=== PATIENT | female | born 1980 | race Caucasian/White ===

== ENCOUNTER 2023-08-30 18:01 | Emergency (ER) | payer MEDICAID, SELFPAY ==
[2023-08-30 18:02] VITALS: BP 131/81; PULSE 86; RESP 15; TEMP 36; O2SAT 98; BMI 28.5
--- NOTE | 2023-08-30 18:17 | EDS_ITS ---
HPI History of Present Illness Chief Complaint: Abd Pain Informant: patient Narrative Narrative: 7-week gestation by dates presents concerns of vomiting over 3 days. No hematemesis. She states her vomit all night none today she will tolerate fluids. No diarrhea. Mild cramping of the abdomen she states she had vaginal discharge that was gel-like. There is no bleeding or clots. She is followed by OB in [place]. She has appointment next week. Denies urinary symptoms. Denies alcohol, tobacco, or illicit drug use. Denies any allergies. [facility] Medical History Irregular heart rate Home Medications ?Medication ?Instructions ?Recorded ?Last Taken ?Type cephalexin 500 mg capsule 500 mg PO Q12 #14 CAPSULES 08/30/23 Unknown Rx promethazine 25 mg tablet 25 mg PO Q6H PRN PRN Nausea #10 08/30/23 Unknown Rx TABLETS Allergy/AdvReac Type Severity Reaction Status Date / Time No Known Allergies Allergy Verified 08/30/23 18:04 Surgical History no surgical history Social History Smoking Status: Never smoker ROS ROS ED Constitutional Constitutional ED: Denies chills, fever(s) or sweats Eyes Eyes: Denies change in vision ENT ENT ED: Denies dysphagia or sore throat Cardiovascular Cardiovascular: Denies chest pain, leg edema, palpitations or racing heartbeat Respiratory/Chest Respiratory/Chest: Denies cough, dyspnea or dyspnea on exertion Gastrointestinal Gastrointestinal: Reports nausea and vomiting; Denies abdominal pain or diarrhea Genitourinary Genitourinary ED: Reports other Details: Vaginal discharge x 1, no bleeding ; Denies dysuria, hematuria or urinary frequency Musculoskeletal Musculoskeletal: Denies back pain, extremity pain or neck pain Integumentary Denies rash or wounds Neurologic Neurologic: Denies headache(s), paresthesias or weakness EXAM Physical Exam Const Vital Signs: 08/30/23 18:02 Temperature 96.8 F L Temperature Source Temporal Pulse Rate 86 Respiratory Rate 15 Blood Pressure 131/81 H Blood Pressure Mean 97 Pulse Ox 98 Positive well nourished and well developed General Appearance ED: well developed and NAD HEENT Reports moist mucous membranes normocephalic and atraumatic Eyes EOMs intact bilaterally and conjunctivae normal General Eye ED: Yes normal appearance of both eyes Neck no lymphadenopathy and supple General: Negative for tenderness Chest Wall Chest: Negative for tenderness Resp normal respiratory effort and normal air movement Effort and Inspection: symmetric chest movement; Negative for respiratory distress Cardio regular rate, regular rhythm and no murmurs Peripheral Pulses: pulses 2+ throughout GI normal to inspection, nondistended, normoactive bowel sounds and non-tender Palpation: Negative for guarding or rebound tenderness present Narrative: No tenderness in the pelvic region Back/Spine no CVA tenderness and no thoracic nor lumbar tenderness Extremity normal to inspection General Extremety ED: Negative for edema or tenderness General Extremity: Negative for edema Neuro oriented x3 and no sensory deficits noted Sensorium / Orientation: awake and alert Skin no rashes or lesions noted and no wounds MDM MDM MDM Narrative Medical decision making narrative: Interventions / MDM: Differential diagnosis: , UTI, dehydration Diagnosis considered but do not suspect: no clinical ectopic My EKG interpretation: N/A Imaging independently reviewed and interpreted by myself: N/A External documents reviewed: N/A Test considered but not ordered:N/A ED course: Patient nontoxic nontender abdomen. Reported vomiting for 3 days. She tolerant oral fluids today. Reports 7-week gestation. IV established for fluids she declines any nausea medicines in the ED as she wants to drive. Electrolytes are sent. Urine sent. I Do not feel ultrasound emergently required today. Urine confirms urine with ketones 25 leukocytes 2+ bacteria. Urine culture sent. Electrolytes are all normal. She is started on Keflex for with bacteria. Urine culture pending. Discussed with patient continue oral fluids for hydration. Prescription for Phenergan and Keflex sent to her pharmacy. She has a follow-up with her OB on September 18. She will keep this appointment. Return precautions. All questions were answered. Re-evaluation: stable Disposition discussed with patient/family/significant other: Patient Case discussed with consulting clinician: N/A This note was generated with [employer] dictation software. It may contain incorrect words, spelling, and punctuation that were not noted in checking the note before signing. Lab Data Attestation: I reviewed the patient's lab results. Labs: Laboratory Results - last 24 hr 08/30/23 18:35 Sodium 137 Potassium 3.5 Chloride 107 Carbon Dioxide 24.0 Anion Gap 6 BUN 12 Creatinine 0.71 Estim Creat Clear Calc 99.84 Est GFR (MDRD) Af Amer 117 Est GFR (MDRD) Non-Af 97 BUN/Creatinine Ratio 17.0 Glucose 110 H Calcium 9.1 Urine Color Yellow Urine Clarity Sl. Cloudy Urine pH 5.0 Ur Specific [place] 1.030 Urine Protein 15 H Urine Glucose (UA) Normal Urine Ketones 5 H Urine Occult Blood Negative Urine Nitrite Negative Urine Bilirubin 1 H Urine Urobilinogen 1 H Ur Leukocyte Esterase 25 H Urine RBC 0-5 SEEN Urine WBC 0-5 SEEN Ur Squamous Epith Cells 5-10 SEEN Calcium Oxalate Crystal 2+ Urine Bacteria 2+ Urine Mucus 3+ Urine Test Positive H Discharge Plan Triage Chief Complaint: Abd Pain ED Provider: Neville Gordon Dx/Rx/DC Orders Clinical Impression: First trimester , Vomiting, UTI in Instructions: Urinary Tract Infections in Women, 1st Trimester, ED Vomiting (Adult) Prescriptions: New cephalexin 500 mg capsule 500 mg PO Q12 Qty: 14 0RF promethazine 25 mg tablet 25 mg PO Q6H PRN PRN (Reason: Nausea) Qty: 10 0RF Stand Alone Forms: ED Work / School Excuse Primary Care Provider: Care Physician,No Primary Referrals: Care Physician,No Primary [Primary Care Provider] - Activity Restrictions/Additional Instructions: Urine with signs of infection. Take antibiotic prescribed. Continue oral fluids for hydration. Use nausea medicines as needed. Follow-up with your OB doctor as scheduled. Print Language: Hungarian Disposition Disposition: Home, Self Care
[2023-08-30] MEDS: 0.9% Normal Saline (1000mL) 1,000 ML 1000 ML IV (18:34)
[2023-08-30 18:59] LABS: Color, Urine Yellow (Yellow); Glucose, Dipstick Normal (Normal); Ketone-Dipstick 5 mg/dl (Negative); Leukocyte Esterase-Dipstick 25 /ul (Negative); Nitrite-Dipstick Negative (Negative); Occult Blood-Urine Negative /ul (Negative); Protein-Dipstick 15 mg/dl (Negative); Urine Bilirubin Dipstick 1 mg/dL (Negative); Urine Clarity Sl. Cloudy (Clear); Urine Urobilinogen 1 mg/dl (Normal)
[2023-08-30 19:01] LABS: Internal QC Validated? YES +Cl - CLEAR BKGD; Pregnancy, Urine Positive Negative
[2023-08-30 19:06] LABS: Anion Gap 6 (5-15); BUN 12 mg/dL (7-18); Calcium Oxalate Crystals Ur 2+ /hpf (<or=2+); Calcium,Total 9.1 mg/dL (8.5-10.1); Chloride 107 mmol/L (98-107); Creatinine, Serum 0.71 mg/dL (0.55-1.02); EST Glomerular Filtration Rate 97 mL/min (>60); Est Glom Filt Rate - Afr Amer 117 mL/min (>60); Estimated Creatinine Clearance 99.84 ml/min; Glucose 110 mg/dL (74-106); Potassium 3.5 mmol/L (3.5-5.1); Sodium Level 137 mmol/L (136-145)
[2023-08-30 19:07] LABS: Mucous, Urine 3+ /hpf (<or=2+); Squamous Epithelial Cells - UA 5-10 SEEN /hpf (5-10); White Blood Cells 0-5 SEEN /hpf (0-5)
[2023-08-30 19:08] LABS: Bacteria 2+ /hpf (None Seen); Red Blood Cells-Urine 0-5 SEEN /hpf (0-5)
[2023-08-30] MEDS: Cephalexin 250 MG Capsule 500 MG PO (19:55)
[2023-08-30 19:58] VITALS: BP 133/69; PULSE 81; RESP 16; TEMP 36.7; O2SAT 98
== END 2023-08-30 20:00 | disposition home or self-care (01) ==
PROVIDERS: Emergency Provider Emergency Medicine; Visit Provider Emergency Medicine
DX: O23.41 Unspecified infection of urinary tract in pregnancy, first trimester (principal); O21.9 Vomiting of pregnancy, unspecified; Z3A.01 Less than 8 weeks gestation of pregnancy
CPT/HCPCS: 80048; 81001; 81025; 87086; 87088; 96360; 99282; J7030; A4216

== ENCOUNTER 2023-09-17 20:01 | Emergency (ER) | payer MEDICAID, SELFPAY ==
[2023-09-17 20:02] VITALS: BP 121/71; PULSE 91; RESP 18; TEMP 36.4; O2SAT 97; BMI 28.8
--- NOTE | 2023-09-17 20:31 | US_ITS ---
EXAM: US , TRANSVAGINAL CLINICAL INDICATION: Vaginal bleeding with TECHNIQUE: Real-time transvaginal obstetrical ultrasound of the maternal pelvis and a first trimester with image documentation. Transvaginal imaging was used for better evaluation of the fetus and adnexa. COMPARISON: No relevant prior studies available. FINDINGS: GESTATION: See below. PLACENTA/AMNIOTIC FLUID: Cannot be adequately evaluated due to the early gestational age. UTERUS/CERVIX: Uterus measures 11.3 x 5.5 x 7.9 cm. No myometrial mass. OVARIES: The left ovary measures 2.9 x 1.9 x 2.5 cm. There is a 1.6 x 1.2 cm corpus luteum on the left. The right ovary measures 2.7 x 2.1 x 2.1 cm. No mass. FREE FLUID: No free fluid. VASCULATURE: There is an echogenic structure within the endometrium that measures 3.0 x 1.7 x 3.1 cm. There is no vascularity present. This is a thick-walled cystic structure does not have the appearance of a gestational sac or intrauterine gestation. US/Transvaginal w/Preg US IMPRESSION: Nonvascular thick-walled cystic structure within the endometrium of uncertain etiology. This does not have the appearance of an intrauterine gestation. There is no pole or evidence of an intrauterine gestational sac. Electronically Signed: Vamsi Santana MD at 21:56 EDT ,
--- NOTE | 2023-09-17 20:34 | EDS_ITS ---
HPI HPI - Female History of Present Illness Chief Complaint: Vag Bld, Preg Narrative Narrative: 43-year-old female, with 2 prior miscarriages presents with vaginal spotting. She states that she was seen in the emergency department approximately 2 weeks ago and diagnosed with a UTI. She was told that her urine test was also positive at that time. Yesterday, she had vaginal spotting with mild pelvic cramping and pressure. This is the same thing that happened with her previous miscarriages. She states that today, she had brown vaginal spotting as well and is concerned about miscarriage as well. Her blood type is reportedly a negative. She has not followed up regarding her UTI, but she did make an appointment with the [facility] at [place] for her reported positive test. Her last menstrual period was in July, and she calculated that she is approximately 9 weeks gestation. [facility] Medical History Irregular heart rate Home Medications ?Medication ?Instructions ?Recorded ?Last Taken ?Type cephalexin 500 mg capsule 500 mg PO Q12 #14 CAPSULES 08/30/23 Unknown Rx promethazine 25 mg tablet 25 mg PO Q6H PRN PRN Nausea #10 08/30/23 Unknown Rx TABLETS Allergy/AdvReac Type Severity Reaction Status Date / Time No Known Allergies Allergy Verified 08/30/23 18:04 Social History Smoking Status: Former smoker ROS ROS ED ROS Narrative Constitutional: No fever, no chills. HEENT: No sore throat. No neck pain. No loss of vision. No rhinorrhea. Cardiovascular: No chest pain. No palpitations. No pedal edema. Respiratory: No cough, no shortness of breath. Abdominal: No abdominal pain. No nausea. No vomiting. Genitourinary: No dysuria. No hematuria. Positive vaginal spotting. Pelvic cramping and pressure. Musculoskeletal: No myalgias. No arthralgias. Neurologic: No headaches. No dizziness. No lightheadedness. Skin: No rash. No change in color. Psychiatric: No depression. No anxiety. EXAM Physical Exam Narrative Exam Narrative: Afebrile. Vital signs noted. HEENT: Normocephalic. Atraumatic. PERRL, EOMI. Neck soft and supple. No point tenderness or step off. Cardiovascular: Regular rate and rhythm. No murmurs, rubs, or gallops appreciated. Respiratory: No tachypnea. Lungs clear to auscultation bilaterally. Gastrointestinal: Abdomen soft, nontender, with normoactive bowel sounds. No rebound or guarding. Genitourinary: Chaperoned pelvic examination reveals no evidence of vaginal bleeding or hemorrhage. Os is closed on bimanual examination. Neurological: Awake. Alert. Nonfocal, nonlateralizing. Skin: No rash. Normal color. No pallor. Musculoskeletal: No pedal edema. Full range of motion extremities. Const Vital Signs: 09/17/23 20:02 09/17/23 22:01 09/17/23 22:31 Temperature 97.6 F L 98.1 F 98.1 F Temperature Source Temporal Temporal Pulse Rate 91 80 80 Respiratory Rate 18 15 15 Blood Pressure 121/71 H 111/73 111/73 Blood Pressure Mean 87 85 85 Pulse Ox 97 100 100 Oxygen Delivery Method Room Air Room Air MDM MDM MDM Narrative Medical decision making narrative: I reviewed the patient's prior records. Concern would be for miscarriage of intrauterine versus ectopic with UTI/cystitis. Review of her prior ED note from August 29 showed that she was already 7 weeks gestation and was being followed by OB in [place]. She was placed on cephalexin for her UTI with . Her urine test was positive at that time. I do not feel that she needs a repeat urine , but if she is having vaginal spotting quantitative beta-hCG will be drawn. I reviewed her laboratory work and her WBC count is normal at 8.1, hemoglobin 11.1, platelet count 322. CMP is remarkable for chloride of 110 with normal BUN of 10 and creatinine 0.69, glucose elevated at 114 with normal anion gap of 5, LFTs are grossly unremarkable. Beta hCG is elevated at 26,721. Blood type is a negative. Of significance on the ultrasound, I reviewed the radiology report which shows an endometrial cystic structure, but no evidence of pole or vascularity. I was able to discuss the patient with Dr. Leblanc with obstetrics and gynecology. There is a possibility that this is a molar . It was not felt that she needed RhoGAM at this time because there is no evidence of bleeding on examination. I discussed the ultrasound results and laboratory results with the patient as well. Review of her urinalysis shows no evidence of infection, so I do not feel antibiotics or further warranted. I stressed the importance of follow-up in the next few days. She states that she has an appointment on , 2 days from now. She is to call the office of the [facility] tomorrow and see if she needs to be seen either tomorrow or during her scheduled appointment reportedly on . Return instructions to the emergency department were reviewed. Disposition is discharged home in stable condition. History & Record Review Discussion w/independent historian: Patient Lab Data Attestation: I reviewed the patient's lab results. Labs: Laboratory Results - last 24 hr 09/17/23 20:50 WBC 8.1 RBC 3.94 L Hgb 11.1 L Hct 33.7 L MCV 85.5 MCH 28.2 MCHC 32.9 RDW Std Deviation 40.5 RDW Coeff of Jen 12.9 Plt Count 322 MPV 9.1 Immature Gran % (Auto) 0.400 Neut % (Auto) 73.8 H Lymph % (Auto) 19.6 Crosby % (Auto) 5.2 Eos % (Auto) 0.6 Baso % (Auto) 0.4 Absolute Neuts (auto) 6.0 Absolute Lymphs (auto) 1.58 Nucleated RBC % 0 Sodium 139 Potassium 3.5 Chloride 110 H Carbon Dioxide 24.0 Anion Gap 5 BUN 10 Creatinine 0.62 Estim Creat Clear Calc 114.99 Est GFR (MDRD) Af Amer 136 Est GFR (MDRD) Non-Af 112 BUN/Creatinine Ratio 16.1 Glucose 114 H Calcium 8.8 Total Bilirubin 0.10 L AST 15 ALT 18 Alkaline Phosphatase 70 Total Protein 6.6 Albumin 3.5 Globulin 3.1 Albumin/Globulin Ratio 1.1 HCG, Quant 20656 H Urine Color Yellow Urine Clarity Sl. Cloudy Urine pH 5.0 Ur Specific [place] 1.030 Urine Protein Negative Urine Glucose (UA) Normal Urine Ketones Negative Urine Occult Blood Negative Urine Nitrite Negative Urine Bilirubin Negative Urine Urobilinogen Normal Ur Leukocyte Esterase Negative Urine RBC 0 SEEN Urine WBC 0 SEEN Ur Squamous Epith Cells 10-25 SEEN Amorphous Sediment 1+ URATE Urine Bacteria 0 SEEN Urine Mucus 0 SEEN Blood Type A NEGATIVE Radiography Diagnostic Testing: Clinical Impression(s) from Imaging Studies Obstetrics Ultrasound 07/09/24 20:31 IMPRESSION: Nonvascular thick-walled cystic structure within the endometrium of uncertain etiology. This does not have the appearance of an intrauterine gestation. There is no pole or evidence of an intrauterine gestational sac. Electronically Signed: Vamsi Santana MD at 21:56 EDT , Management Discussion w/another healthcare provider: [facility] (Dr. Leblanc) Discharge Plan Triage Chief Complaint: Vag Bld, Preg ED Provider: Surya Sutton Dx/Rx/DC Orders Clinical Impression: Vaginal bleeding in , Molar Instructions: Bleeding During Early Prescriptions: No Action cephalexin 500 mg capsule 500 mg PO Q12 Qty: 14 0RF promethazine 25 mg tablet 25 mg PO Q6H PRN PRN (Reason: Nausea) Qty: 10 0RF Primary Care Provider: Care Physician,No Primary Referrals: Valerie Gresham DO [Med Staff - Active Staff] - 1 Day Care Physician,No Primary [Primary Care Provider] - Activity Restrictions/Additional Instructions: Call the office of the [facility] tomorrow. They may want to see you tomorrow, or during your scheduled appointment on . Return to the emergency department with increased bleeding, pain, new or worsening symptoms. It is very important for you to follow-up with the [facility]. Print Language: Chinese Disposition Disposition: Home, Self Care
[2023-09-17 20:55] LABS: Bacteria 0 SEEN /hpf (None Seen); Mucous, Urine 0 SEEN /hpf (<or=2+); Red Blood Cells-Urine 0 SEEN /hpf (0-5); White Blood Cells 0 SEEN /hpf (0-5)
[2023-09-17 21:03] LABS: Absolute Lymphocyte Count 1.58 X10^3/uL (0.83-4.51); Basophil# 0.03 X10^3/uL; Basophil% 0.4 % (0-1); Eosinophil# 0.05 X10^3/uL; Eosinophils% 0.6 % (0-5); Hematocrit 33.7 % (37-47); Hemoglobin 11.1 g/dL (12.0-15.0); Lymphocyte # 1.58 X10^3/ul (0.83-4.51); Lymphocyte % 19.6 % (19-41); Mean Corp Hgb Conc 32.9 g/dL (32-36); Mean Corpuscular Hgb 28.2 pg (27.0-32.0); Mean Corpuscular Volume 85.5 fL (81-99); Mean Platelet Vol. 9.1 fl (6.2-12.0); Monocyte# 0.42 X10^3/uL; Monocyte% 5.2 % (0-10); NRBC Flagged by Analyzer 0 % (0-5); Neutrophil # 5.95 X10^3/uL (2.7-7.7); Neutrophil % 73.8 % (47-70); Platelet Count 322 K/mm3 (150-450); RBC Distribution Width CV 12.9 % (11.6-14.6); RBC Distribution Width SD 40.5 fl (35.1-43.9); Red Blood Count 3.94 M/mm3 (4.2-5.4); White Blood Count 8.1 K/mm3 (4.4-11.0)
[2023-09-17 21:07] LABS: Color, Urine Yellow (Yellow); Glucose, Dipstick Normal (Normal); Ketone-Dipstick Negative (Negative); Leukocyte Esterase-Dipstick Negative /ul (Negative); Nitrite-Dipstick Negative (Negative); Occult Blood-Urine Negative /ul (Negative); Protein-Dipstick Negative (Negative); Urine Bilirubin Dipstick Negative (Negative); Urine Clarity Sl. Cloudy (Clear); Urine Urobilinogen Normal (Normal)
[2023-09-17 21:18] LABS: Squamous Epithelial Cells - UA 10-25 SEEN /hpf (5-10)
[2023-09-17 21:19] LABS: Amorphous Sediment 1+ URATE
[2023-09-17 21:20] LABS: ALB/GLOB Ratio 1.1 RATIO (0.9-2.4); AST(SGOT) 15 U/L (15-37); Alanine Aminotransfer ALT/SGPT 18 U/L (13-56); Albumin, Serum 3.5 g/dL (3.2-5.0); Alkaline Phosphatase 70 U/L (45-117); Anion Gap 5 (5-15); BUN 10 mg/dL (7-18); BUN/Creat Ratio 16.1 RATIO (10-20); Calcium,Total 8.8 mg/dL (8.5-10.1); Chloride 110 mmol/L (98-107); Creatinine, Serum 0.62 mg/dL (0.55-1.02); EST Glomerular Filtration Rate 112 mL/min (>60); Est Glom Filt Rate - Afr Amer 136 mL/min (>60); Estimated Creatinine Clearance 114.99 ml/min; Globulin 3.1 g/dL (2.2-4.2); Glucose 114 mg/dL (74-106); Potassium 3.5 mmol/L (3.5-5.1); Protein, Total 6.6 g/dL (6.4-8.2); Sodium Level 139 mmol/L (136-145)
[2023-09-17 21:40] LABS: hCG Titer Quant., Serum 26721 mIU/mL (1-3)
[2023-09-17 22:01] VITALS: BP 111/73; PULSE 80; RESP 15; TEMP 36.7; O2SAT 100
[2023-09-17 22:31] VITALS: BP 111/73; PULSE 80; RESP 15; TEMP 36.7; O2SAT 100
== END 2023-09-17 22:41 | disposition home or self-care (01) ==
PROVIDERS: Emergency Provider Emergency Medicine; Visit Provider Emergency Medicine
DX: O26.851 Spotting complicating pregnancy, first trimester (principal); O02.0 Blighted ovum and nonhydatidiform mole; O26.21 Pregnancy care for patient with recurrent pregnancy loss, first trimester; O09.521 Supervision of elderly multigravida, first trimester; Z87.891 Personal history of nicotine dependence
CPT/HCPCS: 76817; 80053; 81001; 84702; 85025; 86900; 86901; 99283; A4216

== ENCOUNTER 2023-09-20 11:18 | Day surgery (SDC) | payer MEDICAID, SELFPAY ==
[2023-09-20] VITALS (7 sets, daily range): BP systolic 108–123; BP diastolic 71–79; PULSE 74–91; RESP 14–16; TEMP 36.5–36.6; O2SAT 98–100; BMI 28.0
[2023-09-20] MEDS: Doxycycline 100 MG CAPSULE PO (11:52)
--- NOTE | 2023-09-20 11:52 | HP.PCM_ITS ---
History and Physical Date of Admission: 09/20/23 Intake Vital Signs 09/17/2419:02 09/17/2412:27 09/17/2412:35 Height 5 ft 3 in 5 ft 3 in 5 ft 3 in Weight: 160 lb BMI 28.3 BP 108/68 Intake Visit Reasons: Possible Molar /ER FU per Cardiac Rehabilitation Program Director Required: No Is patient in pain?: No Allergies No Known Allergies Allergy (Verified 09/18/23 13:27) Is last menstrual period known: Yes Last Menstrual Period: 07/13/23 Post menopausal: No : No Control Method: no birthcontrol [facility] Medical History Irregular heart rate Social History (Updated 09/18/23 @ 13:31 by Halima Hatfield) adopted: No household members: significant other and children number of children: 7 current occupational status: employed current occupation: [employer] pets and animals: Yes pets and animals: cat(s) sexually active: Yes Smoking Status: Former smoker substance use type: does not use seatbelt use: always do you feel safe at home: Yes 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 formal US showed cystic sac limited vascularity and miscarriag,e repeat US today also shows releasing GS with no viable IUP. 13-14 mm lining Female Reproductive History Last Menstrual Period: 07/13/23 History 10 Elective abortions Hx Para 7 Spontaneous abortions 2 Hx # Term Pregnancies Ectopic pregnancies Hx # Pregnancies Multiple births # of living children 7 Past Pregnancies Del. Date Name GA/Weeks Outcome Route Bth Weight Gen Labor Lgth Anesth esia Del Locatn Provider FOB Unknown Richard live - full term Unknown Feliberto Unknown Ned Unknown Brentyn Unknown Mathyue Unknown Brookalyn Unknown Grantlon ROS Const Constitutional: Reports as per HPI; Denies fever(s) ENT ENT: Reports system reviewed and no additional complaints, except as documented Cardio Card: Reports system reviewed and no additional complaints, except as documented Resp Resp: Reports system reviewed and no additional complaints, except as documented GI GI: Reports as per HPI : Reports as per HPI Musc Musc: Reports system reviewed and no additional complaints, except as documented Skin Skin/Breast: Reports system reviewed and no additional complaints, except as documented Neuro Neuro: Reports system reviewed and no additional complaints, except as documented Endo Endo: Reports system reviewed and no additional complaints, except as documented Exam Const General: healthy appearing, comfortable and no acute distress HENMT Head: normal to inspection and normocephalic Neck Neck: no lymphadenopathy noted Thyroid: thyroid normal Chest Chest palpation & inspection: normal inspection of the chest Resp Effort & Inspection: normal respiratory effort Cardio Rate: regular rate Rhythm: regular rhythm GI Inspection: normal to inspection Palpation: soft and nontender External Female Exam: normal external appearance Speculum Exam - Vagina: normal appearance of the vagina and vaginal bleeding Bimanual Exam- Vagina & Uterus: uterine shape normal and non-tender OB/External & Speculum: vaginal bleeding Speculum Exam: vaginal bleeding Skin General: no rashes or lesions noted Neuro General: no focal motor deficits Extrem General: normal to inspection and no pedal edema Psych Appearance: grossly normal Coding Level of Care Code Off vis,new,level 4 Diagnoses Incomplete O03.4 Assessment and Plan Assessment and Plan (1) Incomplete : Status: Acute Comment: reviewed bleeding precautions, repeat HCG ordered, medical vs surgical gabriella napier reviewed and recommend surgical management d and c scheduled saturday per patient request Medications: Discontinued cephalexin Discontinued Reason: Pt no longer taking 500 mg PO Q12 14 CAPSULES 0RF promethazine Discontinued Reason: Pt no longer taking 25 mg PO Q6H PRN PRN 10 TABLETS 0RF Nausea Plan After discussing the patient's diagnosis and treatment plan options, patient wishes to proceed with surgical management. I have discussed with the patient the risks, benefits, and alternatives of the procedure which include but are not limited to risks of anesthesia, bleeding, infection, possible damage to bowel, bladder, or surrounding vasculature which could lead to additional surgery to evaluate any complications. Patient agrees to procedure and wishes to proceed. ACOG/uptodate references given for additional information regarding procedure. needs rhogsaturday
[2023-09-20] MEDS: Lactated Ringers 1,000 ML 15 ML IV (11:54)
--- NOTE | 2023-09-20 12:30 | POC_PTH ---
PATIENT: ENRICO WAGNER LOC: [facility] [place] U#:[id number] AGE/SX: 43/F ROOM: RE09/20/[address]: Dr. Valerie Gresham DO : 1980 BED: DIS: 09/20/2023 SPEC #: [id number] RECD: 09/20/23 13:53 STATUS: RENEE INDIGO #: [id number] ORALIA: 09/20/23 12:[address]: Valerie Gresham DEPT: SURGICAL PATHOLOGY RECD BY: Alejandra Porter ENTERED: 09/20/23 14:03 SP TYPE: PROD CONC OTHR DR: No Primary Care Phys Tissues: Product of conception, NOS Procedures: Surgery Specimen Level IV HEADER OPERATION: D&C, suction PRE-OP DIAGNOSIS: Missed TISSUE SUBMITTED: Products of conception MICROSCOPIC DIAGNOSIS Products of conception, suction, dilation and curettage: [place], gestational endometrium and immature chorionic villi (products of conception), clinically missed . DALLIN: 09/23/2023 MICROSCOPIC DESCRIPTION Slides are reviewed. GROSS DESCRIPTION Received in fixative is one container labeled with the patient's name and designated Products of conception. The specimen consists of multiple fragments of knapp-pink soft tissue measuring in aggregate 7.0 x 6.0 x 1.0cm. tissue is not identified. Pricing Manager tissue are submitted in three cassettes. DALLIN/ 09/19 TC:5 CPT:18404
--- NOTE | 2023-09-20 12:35 | PCM.PRE.AN2 ---
ASA Classification* ASA Classification ASA Classification: 2 Assessment & Plan Anesthesia* Anesthesia Assessment Anesthesia Assessment: Discussed sedation and/or anesthesia options, risks, benefits, and alternatives with patient/parents/legal guardian/POA. Questions invited. The patient/parents/legal guardian/POA seems to understand and agrees to proceed with anesthesia plan. Reviewed the physical assessment, medical history, allergy history and patient home medications list prior to surgery/procedure/anesthetic and documented any changes. Performed airway and anesthesia risk assessments. Anesthesia Type Anesthesia Type: MAC Anesthesia Focused Assessment* Temperature: 97.7 F Pulse Rate: 84 Blood Pressure: 123/76 Respiratory Rate: 16 Pulse Ox: 100 Airway Assessment Mouth opens: >3 cm Mallampati Score: III Focused Labs Anesthesia Preop lab: CBC WBC 8.1 K/mm3 (4.4-11.0) 09/17/23 20:50 RBC 3.94 M/mm3 (4.2-5.4) L 09/17/23 20:50 Hgb 11.1 g/dL (12.0-15.0) L 09/17/23 20:50 Hct 33.7 % (37-47) L 09/17/23 20:50 Plt Count 322 K/mm3 (150-450) 09/17/23 20:50 CHEMISTRY Potassium 3.5 mmol/L (3.5-5.1) 09/17/23 20:50 Sodium 139 mmol/L (136-145) 09/17/23 20:50 BUN 10 mg/dL (7-18) 09/17/23 20:50 Creatinine 0.62 mg/dL (0.55-1.02) 09/17/23 20:50 Glucose 114 mg/dL (74-106) H 09/17/23 20:50 COAG HCG, Quant 10142 mIU/mL (1-3) H 09/17/23 20:50 Urine Test Positive Negative H 08/30/23 18:35 Pre-Assessment Diagnosis/Proposed Procedure Planned Operative Procedure(s): D&C SUCTION Anesthesia History 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 When Was Last Pacemaker Check QUESTION #4 FULL TEXT: You/Your Family Experience fever (hyperthermia) with Anesthesia Last Oral Intake Last Oral intake: Last Oral Intake NPO since 00:00 09/20/23 11:45 Meds taken in AM with sips of No 09/20/23 11:45 water? Meds patient instructed to take am of surgery PONV PONV - bookstore manager: PONV - bookstore manager Female Yes 09/19/23 12:31 HX of Motion Sickness Yes 09/19/23 12:31 HX of N/V After Surgery No 09/19/23 12:31 Non-Smoker Yes 09/19/23 12:31 Duration of Surgery greater No 09/19/23 12:31 than 60 minutes Number of Risk Factors 3 09/19/23 12:31 PONV Score Moderate Risk 09/19/23 12:31 Height & Weight Height & Weight: Anesthesia: Height & Weight Height 5 ft 3 in 09/20/23 11:45 Weight: 72 kg 09/20/23 11:45 Body Mass Index (BMI) 28.0 09/20/23 11:45 Respiratory Assessment Respiratory Assessment - bookstore manager: Respiratory Tract Infection Hx - bookstore manager Hx Respiratory Tract Infection No 09/19/23 12:31 STOP Sleep Apnea STOP Sleep Apnea - bookstore manager: STOP Sleep Apnea - bookstore manager Hx Hypertension No 09/19/23 12:31 Hx Sleep Apnea No 09/19/23 12:31 CPAP BIPAP Do you snore loudly (louder Yes 09/19/23 12:31 than talking or can be heard Do you often feel tired/ No 09/19/23 12:31 fatigued/ sleepy during daytime? Has anyone observed you stop No 09/19/23 12:31 breathing during sleep? STOP Results Negative 09/19/23 12:31 QUESTION #5 FULL TEXT : Do you snore loudly (louder than talking or can be heard through closed doors)? Tobacco Use History Tobacco Use History - bookstore manager: Tobacco Use History - bookstore manager Tobacco Use Smoking Status Former smoker 09/19/23 12:31 Hx Tobacco Use No 09/19/23 12:31 Years Smoking Packs Smoked per Day Smoking Cessation Date was Yes - quit smoking within 15 09/19/23 12:31 within the last 15 years years Hx Smoking Cessation Date Hx Smoking Cessation Counseling Hematologic Medial History Hematologic Hx - bookstore manager: Hematologic Medical Hx - health therapist Hx of Blood Transfusion No 09/19/23 12:31 Hx of Transfusion in last 3 No 09/19/23 12:31 Months Date of Last Transfusion (if within last 3 months) Ever experience any problems No 09/19/23 12:31 with transfusion(s)? Specify any problems Hx of Preganancy in last 3 Yes 09/19/23 12:31 Months Nurse Filling Out Transfusion DSCHRIBER 09/19/23 12:31 & Questions: Date: 09/19/23 09/19/23 12:31 Time: 12:34 09/19/23 12:31 Patient unable to answer at this time (ie. confused, unrespo /Reproduction History /Reproductive History - bookstore manager: /Reproductive Hx- bookstore manager Hx Now No 09/19/23 12:31 Gestational Age (in weeks): EDC: Hx Hx Para Hx Section SAB No 09/19/23 12:31 Active Medications Active Medications: Current Medications Generic Name Dose Route Start Last Admin Trade Name Freq PRN Reason Stop Dose Admin Doxycycline Monohydrate 100 mg 09/20/23 12:30 09/20/23 11:52 Doxycycline 100 Mg Capsule PO 100 mg X1 ZAHEER Administration Lactated Ringer's 1,000 mls @ 15 mls/hr 09/20/23 11:30 09/20/23 11:54 IV 15 mls/hr .Q48H ZAHEER Administration PFSH Medical History (Updated 09/19/23 @ 14:13 by Tessa Bynum) Bradycardia Implantable loop recorder present Wears glasses Anxiety Diabetes Anemia Back pain Migraine headache Injury of head and neck Syncope Blackout Heartburn Former smoker Leg cramps History of edema History of echocardiogram History of stress test Cardiology follow-up encounter Home Medications ?Medication ?Instructions ?Recorded ?Last Taken ?Type NK 09/19/23 Unknown History Allergy/AdvReac Type Severity Reaction Status Date / Time No Known Allergies Allergy Verified 09/19/23 12:30 Surgical History (Updated 09/19/23 @ 12:41 by Tessa Bynum) No history of previous surgery Social History (Updated 09/18/23 @ 13:31 by Halima Hatfield) adopted: No household members: significant other and children number of children: 7 current occupational status: employed current occupation: [employer] pets and animals: Yes pets and animals: cat(s) sexually active: Yes Smoking Status: Former smoker substance use type: does not use seatbelt use: always do you feel safe at home: Yes 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
--- NOTE | 2023-09-20 12:50 | PCM.DC ---
Discharge Instructions Diet Discharge Diet: No restrictions Activity Discharge Activity: Return to Normal Activity, May Shower and May Take a Tub Bath (after 1 week) May resume sexual activity in: 1-2 weeks Weight Bearing Status: Weight bearing as tolerated Lifting Restrictions: none Dressing / Incision Call your doctor if you observe: Fever of 101 or Higher, Using more than 1 pad per hour, Shortness of breath and Uncontrolled pain Follow Up Care Please Follow Up With: Valerie Gresham DO When: Call [phone] to schedule appointment. Test Results: Test results from this visit will be discussed in further detail at your follow-up appointment, if applicable. Discharge Plan Admission Primary Reason for Your Visit: suction dilation and curettage Attending Provider: Valerie Gresham Primary Care Provider: Care Physician,No Primary Instructions Print Language: Slovenian Discharge Orders/Prescriptions Prescriptions: New ibuprofen 800 mg tablet 800 mg PO Q8H PRN (Reason: pain) Qty: 15 0RF No Action NK Referrals / Follow Up: Care Physician,No Primary [Primary Care Provider] - Disposition Disposition (needs filled in before D/C Order can be placed): Home, Self Care
[2023-09-20] MEDS: Lidocaine 1% (20 ml mdv) 20 ML Vial (13:01)
--- NOTE | 2023-09-20 13:20 | PCM.OPRPT ---
Problems Associated Problem List Diagnoses (1) Incomplete : Report of Operation Date of Procedure: 09/20/23 Pre-Operative Diagnosis: missed at 5 weeks gestation Post-Operative Diagnosis: missed at 5 weeks gestation Surgery/Procedure Performed:: suction dilation and curettage Description of Surgical Findings:: Patient was taken to the operating room and placed under MAC local anesthesia. She was prepped and draped in the normal sterile fashion the dorsal lithotomy position. Bladder was drained of clear urine and anterior lip of the cervix was grasped and the uterus sounded to 12 cm. Cervix was progressively dilated to allow passage of a 7 mm suction curette. Progressive passes were made removing the retained products of conception without complication. Sharp curettage confirmed complete removal of the retained products. All instruments were removed from the vagina and excellent hemostasis was noted and the patient was taken to recovery in stable condition. Surgeon: Valerie Gresham sketch maker: None Type of Anesthesia: MAC and Topical Anesth Anesthesiologist: Thompson Basilio Special Medications: none Specimen's removed: products of conception Drains: none Estimated Blood Loss (mL): 30cc Complications none Admit VTE Documentation VTE Mechan Device Prophylaxis: SCD's VTE Pharm Prophylaxis ordered?: No Multi Select Codes Urinary/Genital Urinary/Genital CPT Codes: 60727 Surg Trtmt missed Ab 1TM
--- NOTE | 2023-09-20 13:20 | PCM.POST.ANE ---
Anesthesia: Postop Eval I Current Vital Signs Temperature: 97.9 F Pulse Rate: 91 Blood Pressure: 109/71 Respiratory Rate: 14 Pulse Ox: 98 Oxygen Delivery Method: Room Air Assessment Airway patent: Yes Spontaneous unlabored respirations: Yes Mental status: Awake and Calm nausea: No Vomiting: No Anesthesia Complication: No Fluid Hydration Crystalloid volume administer (ml): 500 Total IV fluid infused: 500 Progress Note Anesthesia document: Postop Eval 1 completed: Yes
[2023-09-20] MEDS: HYDROcodone Bitartrate/Apap 5/325 Tablet PO (14:13)
== END 2023-09-20 15:57 | disposition home or self-care (01) ==
LOC: SDC 11:20 → AC 11:20
PROVIDERS: Referring Provider Obstetrics & Gynecology; Visit Provider Obstetrics & Gynecology
PROC: (CPT 59820; principal; 2023-09-20 12:15)
DX: O02.1 Missed abortion (principal); O03.4 Incomplete spontaneous abortion without complication; O09.511 Supervision of elderly primigravida, first trimester; Z87.891 Personal history of nicotine dependence
CPT/HCPCS: 59820; 01965; 86850; 86900; 86901; 88305; 90384; 96372; 99221; J7120; G0378; J2405; J2790; J2791

== ENCOUNTER 2023-09-20 22:13 | Outpatient (CLI) | payer MEDICAID, SELFPAY ==
[2023-09-20 21:44] VITALS: BP 112/80; PULSE 81; RESP 16; TEMP 37.1; O2SAT 98; BMI 28.1
[2023-09-20 22:19] VITALS: BMI 28.0
[2023-09-21] MEDS: Rho(D) Immune Globulin 300 MCG (1500 Unit) Syringe IV (00:10)
--- NOTE | 2023-09-21 01:54 | NURSING ---
Patient leaving unit at 0030 via ambulation by self.
--- NOTE | 2023-09-21 07:41 | OB.TRI.PN_ITS ---
Progress Notes Date of Service: 09/20/23 Progress Note: Patient presents for triage for Rhogam injection. Had D&C on saturday09/20/23 and did not have Rhogam injection prior to leaving. She had type and screen done prior to surgery. called shift production associate provider after hours concerned she did not get injection, unable to verify through [facility] that she received it. Assessment and plan: Rhogam injection on WP. See problem list details for additional plan information. Charges/Coding Multi Select Codes Urinary/Genital Urinary/Genital CPT Codes: No Charge Assessment & Plan (1) Incomplete : COMMENT: reviewed bleeding precautions, repeat HCG ordered, medical vs surgical management reviewed and recommend surgical management d and c scheduled saturday per patient request PLAN: Rhogam injection RTO for scheduled appt/PRN and for annual (2) Vaginal bleeding in :
== END 2023-09-21 00:30 | disposition home or self-care (01) ==
LOC: WPOUT 22:15 → WP 22:16
PROVIDERS: Referring Provider Advanced Practice Midwife; Visit Provider Advanced Practice Midwife
DX: O03.4 Incomplete spontaneous abortion without complication (principal); O46.90 Antepartum hemorrhage, unspecified, unspecified trimester; Z3A.00 Weeks of gestation of pregnancy not specified
CPT/HCPCS: 96372; G0378 ×2; J2790; J2791; 90384; 99221

== ENCOUNTER 2023-11-16 23:33 | Emergency (ER) | payer MEDICAID, SELFPAY ==
[2023-11-16 23:33] VITALS: BP 140/75; PULSE 84; RESP 16; TEMP 37.1; O2SAT 97; BMI 29.4
[2023-11-16] MEDS: Nitrofurantoin Macrocrystals 100 MG Capsule PO (23:58)
[2023-11-17 00:10] LABS: Bacteria 0 SEEN /hpf (None Seen); Red Blood Cells-Urine 0 SEEN /hpf (0-5)
--- NOTE | 2023-11-17 00:17 | EDS_ITS ---
HPI History of Present Illness Chief Complaint: Complaint Informant: patient Narrative Narrative: Patient presents for several issues. She states she has had dysuria, frequency, some low back discomfort for the past week or so consistent with a urinary tract infection, she was seen in urgent care and given a prescription for nitrofurantoin and Diflucan for a yeast infection, she has been having some itchy discharge with it, she started the prescriptions but then threw out the nitrofurantoin on accident after taking only 2 pills as well as a Diflucan. Yeast infection symptoms are improved but she still has them, and the urinary symptoms persist. She denies any unilateral back pain, fevers or vomiting. In addition, she states she has had a sore throat and a cough for the past 4 or 5 days and her son was recently diagnosed with strep after having the same symptoms and she is concerned maybe she has strep. [facility] Medical History Bradycardia Implantable loop recorder present Wears glasses Anxiety Diabetes Anemia Back pain Migraine headache Injury of head and neck Syncope Blackout Heartburn Former smoker Leg cramps History of edema History of echocardiogram History of stress test Cardiology follow-up encounter Home Medications ?Medication ?Instructions ?Recorded ?Last Taken ?Type miconazole nitrate 2 % vaginal 1 appful vaginal QHS 7 days #45 11/17/23 Unknown Rx cream (Miconazole-7) grams Allergy/AdvReac Type Severity Reaction Status Date / Time No Known Allergies Allergy Verified 10/15/23 13:09 Surgical History H/O dilation and curettage No history of previous surgery Social History adopted: No household members: significant other and children number of children: 7 current occupational status: employed current occupation: [employer] 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 ROS ED Constitutional Constitutional ED: Denies chills or fever(s) Eyes Eyes: Denies diplopia ENT ENT ED: Reports rhinorrhea and sore throat; Denies ear pain Cardiovascular Cardiovascular: Denies chest pain Respiratory/Chest Respiratory/Chest: Reports cough; Denies dyspnea Gastrointestinal Gastrointestinal: Denies abdominal pain, nausea or vomiting Genitourinary Genitourinary ED: Reports dysuria and urinary frequency; Denies hematuria Musculoskeletal Musculoskeletal: Reports back pain Neurologic Neurologic: Denies headache(s), paresthesias or weakness EXAM Physical Exam Const Vital Signs: 11/16/23 23:33 Temperature 98.7 F Temperature Source Oral Pulse Rate 84 Respiratory Rate 16 Blood Pressure 140/75 H Blood Pressure Mean 96 Pulse Ox 97 Oxygen Delivery Method Room Air Positive well nourished and well developed General Appearance ED: well developed and NAD HEENT Reports moist mucous membranes HEENT Narrative: Posterior oropharynx normal no exudates or erythema or trismus Eyes PERRL and EOMs intact bilaterally Neck no lymphadenopathy and supple Resp normal respiratory effort and clear to auscultation bilaterally Cardio regular rate, regular rhythm and no murmurs GI non-tender and non-distended Auscultation: normoactive bowel sounds Back/Spine no CVA tenderness Extremity normal to inspection Neuro oriented x3, CN's II-XII intact bilaterally and no sensory deficits noted Motor Exam: strength 5/5 throughout Psych mental status grossly normal Skin no rashes or lesions noted and no wounds MDM MDM MDM Narrative Medical decision making narrative: Since a urinalysis on this patient while giving her a dose of Macrobid, however urinalysis comes back essentially negative with no bacteria, no white blood cells, no leukocyte esterase or nitrite. If she already took a Diflucan and she is still having symptoms of a yeast infection, I recommend topical treatment vaginally. Her strep test returned negative which is consistent with her symptoms. Lab Data Attestation: I reviewed the patient's lab results. Labs: Laboratory Results - last 24 hr 11/17/23 00:00 Urine Color Yellow Urine Clarity Clear Urine pH 6.0 Ur Specific [place] 1.025 Urine Protein 15 H Urine Glucose (UA) Normal Urine Ketones Negative Urine Occult Blood Negative Urine Nitrite Negative Urine Bilirubin Negative Urine Urobilinogen 1 H Ur Leukocyte Esterase Negative Urine RBC 0 SEEN Urine WBC 0-5 SEEN Ur Squamous Epith Cells 5-10 SEEN Urine Bacteria 0 SEEN Urine Mucus 2+ Discharge Plan Triage Chief Complaint: Complaint ED Provider: Carlos Read Dx/Rx/DC Orders Clinical Impression: Candidiasis of vagina, Viral URI Instructions: Candidiasis Vaginal, ED URI, Viral, No Abx (Adult) Prescriptions: New miconazole nitrate [Miconazole-7] 2 % cream 1 appful vaginal QHS 7 Days Qty: 45 0RF Primary Care Provider: Care Physician,No Primary Referrals: Savannah Rogers [Non-Staff] - 1 Week if not improving Activity Restrictions/Additional Instructions: Your urinalysis is negative, so no further antibiotics are indicated. Print Language: Czech Disposition Disposition: Home, Self Care
[2023-11-17 00:18] LABS: Color, Urine Yellow (Yellow); Glucose, Dipstick Normal (Normal); Ketone-Dipstick Negative (Negative); Leukocyte Esterase-Dipstick Negative /ul (Negative); Nitrite-Dipstick Negative (Negative); Occult Blood-Urine Negative /ul (Negative); Protein-Dipstick 15 mg/dl (Negative); Specific Gravity, Urine 1.025 (1.002-1.030); Urine Bilirubin Dipstick Negative (Negative); Urine Clarity Clear (Clear); Urine Urobilinogen 1 mg/dl (Normal)
[2023-11-17 00:39] LABS: Mucous, Urine 2+ /hpf (<or=2+); Squamous Epithelial Cells - UA 5-10 SEEN /hpf (5-10); White Blood Cells 0-5 SEEN /hpf (0-5)
== END 2023-11-17 01:30 | disposition home or self-care (01) ==
PROVIDERS: Emergency Provider Emergency Medicine; Visit Provider Emergency Medicine
DX: B37.31 Acute candidiasis of vulva and vagina (principal); J06.9 Acute upper respiratory infection, unspecified; Z87.891 Personal history of nicotine dependence
CPT/HCPCS: 81001; 87651; 99283

== ENCOUNTER → 2024-02-18 | Outpatient (CLI) | payer MEDICAID, SELFPAY ==
[2024-02-18 11:37] LABS: hCG Titer Quant., Serum 15117 mIU/mL (1-3)
== END | disposition home or self-care (01) ==
PROVIDERS: Referring Provider Advanced Practice Midwife; Visit Provider Advanced Practice Midwife
DX: O26.20 Pregnancy care for patient with recurrent pregnancy loss, unspecified trimester (principal); Z3A.00 Weeks of gestation of pregnancy not specified
CPT/HCPCS: 36415; 84702

== ENCOUNTER → 2024-02-21 | Outpatient (CLI) | payer MEDICAID, SELFPAY ==
[2024-02-21 17:13] LABS: hCG Titer Quant., Serum 31136 mIU/mL (1-3)
== END | disposition home or self-care (01) ==
LOC: BWCLAB 14:42
PROVIDERS: Referring Provider Advanced Practice Midwife; Visit Provider Advanced Practice Midwife
DX: O26.20 Pregnancy care for patient with recurrent pregnancy loss, unspecified trimester (principal); O09.529 Supervision of elderly multigravida, unspecified trimester; Z3A.00 Weeks of gestation of pregnancy not specified
CPT/HCPCS: 36415; 84702

== ENCOUNTER 2024-02-22 13:15 | Emergency (ER) | payer MEDICAID, SELFPAY ==
[2024-02-22 13:16] VITALS: BP 140/84; PULSE 87; RESP 14; TEMP 36.2; O2SAT 100; BMI 30.3
--- NOTE | 2024-02-22 13:24 | US_ITS ---
HISTORY: vaginal bleeding. LMP 01/13/2024. TECHNIQUE: Transvaginal pelvic ultrasound was performed. 99 images. COMPARISON: 09/17/2023. FINDINGS: UTERUS: 12.3 x 6.6 x 6.1 cm. Closed cervix. RIGHT OVARY: 1.9 x 2.6 x 3.9 cm. No adnexal masses. LEFT OVARY: 1.8 x 1 point cm. No adnexal masses. FREE FLUID: None. INTRAUTERINE GESTATIONAL SAC: Single. Mean sac diameter cysts 1.5 cm corresponding to 6 weeks 2 days. YOLK SAC: 3 mm. POLE: [place] rump length 7.6 mm corresponding to 6 weeks 6 days. ESTIMATED DELIVERY DATE: 10/13/2024. HEART MOTION: 127 bpm. PLACENTA: Not visualized due to age. SUBCHORIONIC HEMORRHAGE: Mild. US/Transvaginal w/Preg US IMPRESSION: Intrauterine with an estimated gestational age of 6 weeks 6 days and heart motion demonstrated. Mild subchorionic hematoma. Electronically Signed: Lita Sam MD at 14:48 EST ,
--- NOTE | 2024-02-22 13:28 | EDS_ITS ---
HPI <LIZET Moses - Last Filed: 02/22/24 15:03> HPI - Female History of Present Illness Chief Complaint: Vag Bld, Preg Narrative Narrative: Patient presenting today due to vaginal spotting that started yesterday. Today, she has had very minimal spotting and has not had to wear a pad. She thinks she is around 6 weeks . Her last menstrual period was 01/13/2024. She is . She has had multiple miscarriages in the past. She has not yet seen her OB for this or had a ultrasound. She also endorses dysuria and is concerned that she could either have a yeast infection or UTI. She denies fevers, chills, pelvic pain, abdominal pain, nausea, and vomiting. PFSH <LIZET Moses - Last Filed: 02/22/24 15:03> PFS Medical History Bradycardia Implantable loop recorder present Wears glasses Anxiety Diabetes Anemia Back pain Migraine headache Injury of head and neck Syncope Blackout Heartburn Former smoker Leg cramps History of edema History of echocardiogram History of stress test Cardiology follow-up encounter Home Medications ?Medication ?Instructions ?Recorded ?Last Taken ?Type miconazole nitrate 2 % vaginal 1 appful vaginal QHS 7 days #45 11/17/23 Unknown Rx cream (Miconazole-7) grams cephalexin 500 mg capsule 500 mg PO Q6 7 days #27 CAPSULES 02/22/24 Unknown Rx Allergy/AdvReac Type Severity Reaction Status Date / Time No Known Allergies Allergy Verified 02/22/24 13:16 Surgical History H/O dilation and curettage No history of previous surgery Social History adopted: No household members: significant other and children number of children: 7 current occupational status: employed current occupation: [employer] 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 <LIZET Moses - Last Filed: 02/22/24 15:03> ROS ED Constitutional Constitutional ED: Denies chills or fever(s) Cardiovascular Cardiovascular: Denies chest pain Respiratory/Chest Respiratory/Chest: Denies dyspnea Gastrointestinal Gastrointestinal: Denies abdominal pain, nausea or vomiting Genitourinary Genitourinary ED: Reports dysuria; Denies urinary urgency Musculoskeletal Musculoskeletal: Denies arthralgias or myalgias Integumentary Denies rash Neurologic Neurologic: Denies weakness EXAM <LIZET Moses - Last Filed: 02/22/24 15:03> Physical Exam Const Vital Signs: 02/22/24 13:16 02/22/24 15:12 Temperature 97.1 F L 97.8 F Temperature Source Temporal Pulse Rate 87 72 Respiratory Rate 14 16 Blood Pressure 140/84 H 125/89 H Blood Pressure Mean 102 101 Pulse Ox 100 99 Oxygen Delivery Method Room Air Positive well nourished, well developed and no apparent distress General Appearance ED: well developed HEENT Reports normocephalic and head/scalp atraumatic Mouth ED: Yes moist mucous membranes normal Eyes PERRL and EOMs intact bilaterally Neck full ROM and supple Chest Wall inspection of chest normal Resp normal respiratory effort and clear to auscultation bilaterally Cardio regular rate and regular rhythm GI soft to palpation, non-tender, non-distended and no masses Back/Spine normal ROM and normal to inspection Extremity normal to inspection and full ROM Neuro oriented x3, CN's II-XII intact bilaterally, moves all extremities, no focal motor deficits and no sensory deficits noted Sensorium / Orientation: awake and alert Psych mental status grossly normal and thought process normal Skin no rashes or lesions noted and no wounds <Dr. Michael Pena MD - Last Filed: 02/22/24 16:04> Physical Exam Const Vital Signs: 02/22/24 13:16 02/22/24 15:12 Temperature 97.1 F L 97.8 F Temperature Source Temporal Pulse Rate 87 72 Respiratory Rate 14 16 Blood Pressure 140/84 H 125/89 H Blood Pressure Mean 102 101 Pulse Ox 100 99 Oxygen Delivery Method Room Air MDM <LIZET Moses - Last Filed: 02/22/24 15:03> MDM MDM Narrative Medical decision making narrative: Patient presenting today with concerns for vaginal spotting that started yesterday. She is currently around 6 weeks . She has not yet had ultrasound to confirm intrauterine . She is well-appearing and in no acute distress. She is Rh- but ACOG now recommends RhoGAM be given if over 12 weeks for vaginal bleeding/miscarriage. Labs were obtained, her H&H are normal at 12.6 and 37.3. No leukocytosis. Her hCG quant is 35,570. UA shows leukocyte esterase and 1+ bacteria. Given her dysuria and the fact that she is she will be treated for UTI with Keflex and this will be cultured. Ultrasound shows an estimated gestational age of 6 weeks 6 days, intrauterine , heart rate of 127 bpm, small subchorionic hematoma. I spoke with Sonia Sanders CNM, she recommended having patient follow-up in the office. She will be discharged home in stable condition. Lab Data Labs: Laboratory Results - last 24 hr 02/22/24 02/22/24 13:32 13:40 WBC 7.1 RBC 4.45 Hgb 12.6 Hct 37.3 MCV 83.8 MCH 28.3 MCHC 33.8 RDW Std Deviation 41.8 RDW Coeff of Jen 13.5 Plt Count 301 MPV 9.0 HCG, Quant 31093 H Urine Color Yellow Urine Clarity Clear Urine pH 6.0 Ur Specific [place] 1.020 Urine Protein Negative Urine Glucose (UA) Normal Urine Ketones Negative Urine Occult Blood Negative Urine Nitrite Negative Urine Bilirubin Negative Urine Urobilinogen Normal Ur Leukocyte Esterase 100 H Urine RBC 0 SEEN Urine WBC 0-5 SEEN Ur Squamous Epith Cells 0-5 SEEN Urine Bacteria 1+ Urine Mucus 0 SEEN Radiography Diagnostic Testing: Clinical Impression(s) from Imaging Studies Obstetrics Ultrasound 02/22/24 13:24 IMPRESSION: Intrauterine with an estimated gestational age of 6 weeks 6 days and heart motion demonstrated. Mild subchorionic hematoma. Electronically Signed: Lita Sam MD at 14:48 EST , <Dr. Michael Pena MD - Last Filed: 02/22/24 16:04> [facility] Lab Data Attestation: I reviewed the patient's lab results. Lab results narrative: CBC without differential is normal. Urinalysis reveals bacteriuria. There is no white cells noted. Leukoesterase is positive. Nitrite is negative. Since patient is we will send culture and treat with Macrobid. Labs: Laboratory Results - last 24 hr 02/22/24 02/22/24 13:32 13:40 WBC 7.1 RBC 4.45 Hgb 12.6 Hct 37.3 MCV 83.8 MCH 28.3 MCHC 33.8 RDW Std Deviation 41.8 RDW Coeff of Jen 13.5 Plt Count 301 MPV 9.0 HCG, Quant 46958 H Urine Color Yellow Urine Clarity Clear Urine pH 6.0 Ur Specific [place] 1.020 Urine Protein Negative Urine Glucose (UA) Normal Urine Ketones Negative Urine Occult Blood Negative Urine Nitrite Negative Urine Bilirubin Negative Urine Urobilinogen Normal Ur Leukocyte Esterase 100 H Urine RBC 0 SEEN Urine WBC 0-5 SEEN Ur Squamous Epith Cells 0-5 SEEN Urine Bacteria 1+ Urine Mucus 0 SEEN Radiography Diagnostic Testing: Clinical Impression(s) from Imaging Studies Obstetrics Ultrasound 02/22/24 13:24 IMPRESSION: Intrauterine with an estimated gestational age of 6 weeks 6 days and heart motion demonstrated. Mild subchorionic hematoma. Electronically Signed: Lita Sam MD at 14:48 EST Reading Location ID and State: [facility] / [place] Tel , Service support , Procedures <Dr. Michael Pena MD - Last Filed: 02/22/24 16:04> Other Procedures Procedure(s): Transabdominal ultrasound was performed. There appears to be a gestational sac in the uterus. I do not appreciate a heartbeat. A formal ultrasound was obtained. Will await formal read by radiologist. In my opinion there is a gestational sac. I did not notice any comment regarding heartbeat. Per the new ACOG guidelines program was not ordered. Discharge Plan Triage Chief Complaint: Vag Bld, Preg ED Midlevel Provider: Vida London ED Provider: Michael Pena Dx/Rx/DC Orders Clinical Impression: First trimester , Subchorionic hematoma, UTI (urinary tract infection) Instructions: Bleeding During Early Prescriptions: New cephalexin 500 mg capsule 500 mg PO Q6 7 Days Qty: 27 0RF No Action miconazole nitrate [Miconazole-7] 2 % cream 1 appful vaginal QHS 7 Days Qty: 45 0RF Primary Care Provider: Care Physician,No Primary Referrals: Care Physician,No Primary [Primary Care Provider] - Activity Restrictions/Additional Instructions: Follow-up with OB. Return for any other concerns. Print Language: Egyptian Disposition Disposition: Home, Self Care Discharge Date/Time: 02/22/24 15:13
[2024-02-22 13:39] LABS: Color, Urine Yellow (Yellow); Glucose, Dipstick Normal (Normal); Ketone-Dipstick Negative (Negative); Leukocyte Esterase-Dipstick 100 /ul (Negative); Nitrite-Dipstick Negative (Negative); Occult Blood-Urine Negative /ul (Negative); Protein-Dipstick Negative (Negative); Urine Bilirubin Dipstick Negative (Negative); Urine Clarity Clear (Clear); Urine Urobilinogen Normal (Normal)
[2024-02-22 13:50] LABS: Hematocrit 37.3 % (37-47); Hemoglobin 12.6 g/dL (12.0-15.0); Mean Corp Hgb Conc 33.8 g/dL (32-36); Mean Corpuscular Hgb 28.3 pg (27.0-32.0); Mean Corpuscular Volume 83.8 fL (81-99); Platelet Count 301 K/mm3 (150-450); RBC Distribution Width CV 13.5 % (11.6-14.6); RBC Distribution Width SD 41.8 fl (35.1-43.9); Red Blood Count 4.45 M/mm3 (4.2-5.4); White Blood Count 7.1 K/mm3 (4.4-11.0)
[2024-02-22 13:56] LABS: Mucous, Urine 0 SEEN /hpf (<or=2+); Red Blood Cells-Urine 0 SEEN /hpf (0-5)
[2024-02-22 14:02] LABS: Bacteria 1+ /hpf (None Seen); White Blood Cells 0-5 SEEN /hpf (0-5)
[2024-02-22 14:03] LABS: Squamous Epithelial Cells - UA 0-5 SEEN /hpf (5-10)
[2024-02-22 14:25] LABS: hCG Titer Quant., Serum 35570 mIU/mL (1-3)
[2024-02-22 15:12] VITALS: BP 125/89; PULSE 72; RESP 16; TEMP 36.6; O2SAT 99
[2024-02-22] MEDS: Cephalexin 250 MG Capsule 500 MG PO (15:12)
== END 2024-02-22 15:13 | disposition home or self-care (01) ==
PROVIDERS: Physician Assistant; Emergency Provider Emergency Medicine; Visit Provider Emergency Medicine
DX: O23.41 Unspecified infection of urinary tract in pregnancy, first trimester (principal); S06.6XAA Traumatic subarachnoid hemorrhage with loss of consciousness status unknown, initial encounter; O09.511 Supervision of elderly primigravida, first trimester; O24.911 Unspecified diabetes mellitus in pregnancy, first trimester; Z3A.01 Less than 8 weeks gestation of pregnancy; Z87.891 Personal history of nicotine dependence; O9A.211 Injury, poisoning and certain other consequences of external causes complicating pregnancy, first trimester; X58.XXXA Exposure to other specified factors, initial encounter
CPT/HCPCS: J2791; 76817; 81001; 84702; 85027; 87077; 87086; 87088; 87186; 99282; A4216

== ENCOUNTER → 2024-03-27 | Outpatient (CLI) | payer MEDICAID, SELFPAY ==
[2024-03-27 12:38] LABS: Absolute Lymphocyte Count 1.75 X10^3/uL (0.83-4.51); Absolute Neutrophil Count 5.8 X10^3/uL (2.0-7.7); Basophil# 0.03 X10^3/uL; Basophil% 0.4 % (0-1); Eosinophil# 0.08 X10^3/uL; Hematocrit 37.9 % (37-47); Hemoglobin 12.3 g/dL (12.0-15.0); Lymphocyte # 1.75 X10^3/ul (0.83-4.51); Lymphocyte % 21.2 % (19-41); Mean Corp Hgb Conc 32.5 g/dL (32-36); Mean Corpuscular Hgb 27.3 pg (27.0-32.0); Monocyte# 0.56 X10^3/uL; Monocyte% 6.8 % (0-10); NRBC Flagged by Analyzer 0 % (0-5); Neutrophil % 70.1 % (47-70); Platelet Count 397 K/mm3 (150-450); RBC Distribution Width CV 13.2 % (11.6-14.6); RBC Distribution Width SD 40.6 fl (35.1-43.9); Red Blood Count 4.51 M/mm3 (4.2-5.4); White Blood Count 8.3 K/mm3 (4.4-11.0)
[2024-03-27 13:08] LABS: Hemoglobin A1c 5.5 % (3.8-5.6)
[2024-03-27 13:48] LABS: HIV - WCH Non-Reactive (Nonreactive); Hepatitis B Surface Antigen Non-Reactive (Nonreactive); Hepatitis C Antibody Non-Reactive (Nonreactive); Rubella IgG Reactive (Nonreactive); Syphilis Antibodies Non-reactive
[2024-03-30 20:07] LABS: Chlamydia By Nucleic Acid AMP Negative (Negative); Gonococcus By Nucleic Acid AMP Negative (Negative)
[2024-04-02 00:06] LABS: HPV APTIMA, High Risk Negative (Negative)
== END | disposition home or self-care (01) ==
LOC: BWCLAB 12:09
PROVIDERS: Referring Provider Registered Nurse; Visit Provider Registered Nurse
DX: O09.91 Supervision of high risk pregnancy, unspecified, first trimester (principal); Z3A.10 10 weeks gestation of pregnancy; Z12.4 Encounter for screening for malignant neoplasm of cervix

== ENCOUNTER 2024-04-19 13:29 | Emergency (ER) | payer MEDICAID, SELFPAY ==
[2024-04-19 13:30] VITALS: BP 119/103; PULSE 93; RESP 16; TEMP 35.8; O2SAT 99; BMI 30.5
--- NOTE | 2024-04-19 14:44 | EDS_ITS ---
HPI <LIZET Moses - Last Filed: 04/19/24 17:10> HPI - URI History of Present Illness Chief Complaint: Sore Throat Narrative Narrative: Patient presenting today with a sore throat she has had over the past 3 days. She is wanting to be tested for strep throat. She also reports body aches, bilateral ear pain, nasal congestion, and a nonproductive cough. She is currently 23 weeks . She is . She denies abdominal pain, vomiting, chest pain, and shortness of breath. Reports occasional nausea but states that this is normal with her . ROS <LIZET Moses - Last Filed: 04/19/24 17:10> ROS ED Constitutional Constitutional ED: Denies chills or fever(s) ENT ENT ED: Reports rhinorrhea and sore throat Cardiovascular Cardiovascular: Denies chest pain Respiratory/Chest Respiratory/Chest: Reports cough; Denies dyspnea Gastrointestinal Gastrointestinal: Reports nausea; Denies abdominal pain or vomiting Genitourinary Genitourinary ED: Denies dysuria, hematuria or urinary urgency Musculoskeletal Musculoskeletal: Reports other Details: Body aches Integumentary Denies rash Neurologic Neurologic: Denies weakness PFSH <LIZET Moses - Last Filed: 04/19/24 17:10> PFS Medical History Bradycardia Implantable loop recorder present Wears glasses Anxiety Diabetes Anemia Back pain Migraine headache Injury of head and neck Syncope Blackout Heartburn Former smoker Leg cramps History of edema History of echocardiogram History of stress test Cardiology follow-up encounter Home Medications ?Medication ?Instructions ?Recorded ?Last Taken ?Type vit 168-iron 27 mg-folic 1 cap PO DAILY #30 c aps 03/27/24 Unknown Rx acid 800 mcg-omega3 235 mg capsule (One-A-Day -1) amoxicillin 500 mg capsule 500 mg PO BID #13 caps 12/03 Unknown Rx Allergy/AdvReac Type Severity Reaction Status Date / Time No Known Allergies Allergy Verified 03/27/24 11:15 Family History no significant family his Surgical History H/O dilation and curettage No history of previous surgery Social History adopted: No household members: significant other and children number of children: 7 current occupational status: employed current occupation: [employer] pets and animals: Yes pets and animals: cat(s) sexually active: Yes Smoking Status: Former smoker substance use type: does not use seatbelt use: always do you feel safe at home: Yes 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 Bilateral EACs and TMs clear, no evidence of otitis media or externa. Mouth ED: Yes moist mucous membranes normal Eyes PERRL and EOMs intact bilaterally Neck full ROM, supple and no meningeal signs Chest Wall inspection of chest normal Resp normal respiratory effort and clear to auscultation bilaterally Cardio regular rate and regular rhythm GI non-tender and non-distended Back/Spine normal ROM and normal to inspection Extremity normal to inspection and full ROM Neuro oriented x3, CN's II-XII intact bilaterally, moves all extremities, no focal motor deficits and no sensory deficits noted Sensorium / Orientation: awake and alert Psych mental status grossly normal and thought process normal Skin no rashes or lesions noted and no wounds <Dr. Karl Rahman DO - Last Filed: 04/19/24 17:16> Physical Exam Const Vital Signs: 04/19/24 13:30 04/19/24 15:46 Temperature 96.5 F L 96.5 F L Temperature Source Temporal Pulse Rate 93 93 Respiratory Rate 16 16 Blood Pressure 119/103 H 119/103 H Blood Pressure Mean 108 108 Pulse Ox 99 99 Oxygen Delivery Method Room Air MDM <LIZET Moses - Last Filed: 04/19/24 17:10> MDM MDM Narrative Medical decision making narrative: Patient presenting today with a sore throat and flulike symptoms that started 4 days ago. She is wanting to be tested for strep. She is otherwise nontoxic- appearing. She is afebrile. Rapid strep was obtained and is positive. COVID/influenza/RSV swab is negative. She was started on amoxicillin with first dose here. Recommended that she follow-up with her PCP. Supportive care measures discussed and patient discharged home in stable condition. <Dr. Karl Rahman, DO - Last Filed: 04/19/24 17:16> [facility] Narrative Medical decision making narrative: Patient presenting today with a sore throat and flulike symptoms that started 4 days ago. She is wanting to be tested for strep. She is otherwise nontoxic- appearing. She is afebrile. Rapid strep was obtained and is positive. COVID/influenza/RSV swab is negative. She was started on amoxicillin with first dose here. Recommended that she follow-up with her PCP. Supportive care measures discussed and patient discharged home in stable condition. ED attending note: I evaluated the patient in conjunction with the HIREN. I agree with his/her statements and above findings. I have personally performed a face to face assessment of the patient and have reviewed the HIREN Note. I performed a substantive portion of the visit including all aspects of the following. I personally saw the patient performed chart review, physical exam, reviewed labs, imaging (if obtained), and formulated a treatment and management plan. This note was generated with [employer] dictation software. It may contain incorrect words, spelling, and punctuation that were not noted in review of the chart prior to signing. Discharge Plan Triage Chief Complaint: Sore Throat ED Midlevel Provider: Vida London ED Provider: Karl Rahman Dx/Rx/DC Orders Clinical Impression: Strep throat, Instructions: ED Pharyngitis, Strep (Confirmed) Prescriptions: New amoxicillin 500 mg capsule 500 mg PO BID Qty: 13 0RF No Action One-A-Day -1 27 mg iron- 800 mcg-235 mg capsule 1 cap PO DAILY Qty: 30 8RF Primary Care Provider: Care Physician,No Primary Referrals: Care Physician,No Primary [Primary Care Provider] - Activity Restrictions/Additional Instructions: Follow-up with your PCP and return for any other concerns. Print Language: Amharic Disposition Disposition: Home, Self Care Discharge Date/Time: 04/19/24 15:47
[2024-04-19] MEDS: AMOXICILLIN 500 MG CAPSULE PO (15:40)
[2024-04-19 15:46] VITALS: BP 119/103; PULSE 93; RESP 16; TEMP 35.8; O2SAT 99
== END 2024-04-19 15:47 | disposition home or self-care (01) ==
PROVIDERS: Emergency Provider Emergency Medicine; Visit Provider Emergency Medicine
DX: O99.512 Diseases of the respiratory system complicating pregnancy, second trimester (principal); Z3A.23 23 weeks gestation of pregnancy; J02.0 Streptococcal pharyngitis; O09.522 Supervision of elderly multigravida, second trimester; Z87.891 Personal history of nicotine dependence
CPT/HCPCS: 87631; 87651; 99282

== ENCOUNTER → 2024-05-04 | Outpatient (CLI) | payer MEDICAID, SELFPAY | END | disposition home or self-care (01) | PROVIDERS: Referring Provider Advanced Practice Midwife; Visit Provider Advanced Practice Midwife | DX: O09.522 Supervision of elderly multigravida, second trimester (principal); O23.42 Unspecified infection of urinary tract in pregnancy, second trimester; Z3A.16 16 weeks gestation of pregnancy | CPT/HCPCS: 36415; 87086 ==

== ENCOUNTER 2024-07-25 15:58 | Emergency (ER) | payer MEDICAID, SELFPAY ==
[2024-07-25 15:59] VITALS: BP 120/80; PULSE 100; RESP 16; TEMP 36.3; O2SAT 100; BMI 32.4
--- NOTE | 2024-07-25 16:22 | EKG12_ITS ---
Test Reason : SOB Blood Pressure : */* mmHG Vent. Rate : 98 BPM Atrial Rate : 98 BPM P-R Int : 136 ms QRS Dur : 70 ms QT Int : 336 ms P-R-T Axes : 50 9 29 degrees QTcB Int : 428 ms Normal sinus rhythm Normal ECG Confirmed by OLGA LAINEZ, SULMA ([id number]), editor greeting card ELENA DILLON ([id number]) on 07/27/2024 9:16:56 AM Referred By: Confirmed By: SULMA ESPINOZA MD
--- NOTE | 2024-07-25 16:23 | EDS_ITS ---
HPI History of Present Illness Chief Complaint: Shortness of Breath Informant: patient and spouse/S.O. Narrative Narrative: 28 weeks gestation by ultrasound presents 1 week worsening dyspnea. No cough. No fevers. Urine frequency. No vomiting or diarrhea. Normal bowel movements. Reports was seen at outside ED this past Saturday states blood workup abnormalities leading to his scan with concerning air outside her chest cavity. She was transferred to [facility] no interventions states it was not seen by facility. She is discharged the following day. She was told her labs were normal however she looked up on MyChart no hemoglobin of 9. She had urine culture with CFU 50-90,000. She had no dysuria. I discussed less than 100,000 therefore less likely infectious. States at times mild lightheaded with standing short of breath with walking around. Reports she is coming here for answers due to having mixed information from 2 facilities. Prior similar symptoms: Yes [facility] Medical History Incomplete Bradycardia Implantable loop recorder present Wears glasses Anxiety Diabetes Anemia Back pain Migraine headache Injury of head and neck Syncope Blackout Heartburn Former smoker Leg cramps History of edema History of echocardiogram History of stress test Cardiology follow-up encounter Home Medications ?Medication ?Instructions ?Recorded ?Last Taken ?Type vit 168-iron 27 mg-folic 1 cap PO DAILY #30 c aps 03/27/24 Unknown Rx acid 800 mcg-omega3 235 mg capsule (One-A-Day -1) cephalexin 500 mg capsule 500 mg PO Q12 #10 CAPSULES 0 07/25/24 Unknown Rx Allergy/AdvReac Type Severity Reaction Status Date / Time No Known Allergies Allergy Verified 07/25/24 16:03 Surgical History H/O dilation and curettage No history of previous surgery Social History adopted: No household members: significant other and children number of children: 7 current occupational status: employed current occupation: [employer] 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 ROS ED Constitutional Constitutional ED: Denies chills, fever(s) or sweats ENT ENT ED: Denies sore throat Cardiovascular Cardiovascular: Reports palpitations; Denies chest pain, leg edema or racing heartbeat Respiratory/Chest Respiratory/Chest: Reports dyspnea and dyspnea on exertion; Denies cough Gastrointestinal Gastrointestinal: Denies abdominal pain, diarrhea, nausea or vomiting Genitourinary Genitourinary ED: Reports urinary frequency; Denies dysuria or hematuria Musculoskeletal Musculoskeletal: Denies back pain, extremity pain or neck pain Integumentary Denies rash or wounds Neurologic Neurologic: Denies headache(s), paresthesias or weakness EXAM Physical Exam Const Vital Signs: 07/25/24 15:59 07/25/24 16:32 07/25/24 16:59 Temperature 97.3 F L Temperature Source Temporal Pulse Rate 100 91 Respiratory Rate 16 21 H Respiratory Effort Normal Non-Labored Respiratory Depth Normal Respiratory Pattern Normal Blood Pressure 120/80 100/83 H Blood Pressure Mean 93 88 Pulse Ox 100 96 Oxygen Delivery Method Room Air Room Air Room Air 07/25/24 17:38 Temperature 97.3 F L Temperature Source Pulse Rate 92 Respiratory Rate 22 H Respiratory Effort Respiratory Depth Respiratory Pattern Blood Pressure 106/69 Blood Pressure Mean 81 Pulse Ox 98 Oxygen Delivery Method Positive well nourished and well developed General Appearance ED: well developed and NAD HEENT Reports moist mucous membranes normocephalic and atraumatic Eyes General Eye ED: Yes normal appearance of both eyes Neck full ROM Chest Wall Chest: Negative for tenderness Resp normal respiratory effort and normal air movement Effort and Inspection: symmetric chest movement; Negative for respiratory distress Cardio regular rate, regular rhythm and no murmurs Peripheral Pulses: pulses 2+ throughout GI non-tender GI Narrative: Mild gravid abdomen nontender. Palpation: Negative for guarding or rebound tenderness present Extremity normal to inspection General Extremety ED: Negative for edema or tenderness General Extremity: Negative for edema Neuro oriented x3 and no sensory deficits noted Sensorium / Orientation: awake and alert Skin no rashes or lesions noted and no wounds MDM MDM MDM Narrative Medical decision making narrative: Interventions / MDM: Differential diagnosis: Dyspnea in , anemia in , UTI in , Diagnosis considered but do not suspect: Pulmonary embolism however recent CT negative. My EKG interpretation: Sinus rhythm 98, no ST changes QTc 428. Imaging independently reviewed and interpreted by myself: 2 view chest x-ray: No acute process. External documents reviewed: Clinisync: Outside ED CTA chest neck for PE extraluminal air unclear etiology once section. Reread at transferring facility no extraluminal air. Seen by cardiology there cleared. She has a loop recorder. Hemoglobin 9.1 from records. Test considered but not ordered:N/A ED course: Vital signs stable. EKG normal. Presenting with dyspnea, she noted hemoglobin of 9 which is not abnormal for . She is on prenatals. I will recheck labs get a chest x-ray. Will try to get records of her evaluation. 1730: heart tones 121. Hemoglobin 8.1 stable from her recent labs. Two- view chest x-ray negative for acute process urine with signs of infection as she has increasing frequency that is different than her normal . Urine culture sent. She is covered Keflex. Ambulate with a pulse ox maintaining in the 90s had a brief 93% however it read back up. Reviewing of Clinisync she had a CT chest to rule out PE on the 13 4 days ago after symptoms started a week ago. Radiology from initial outside hospital reporting questionable extraluminal air in the mediastinum 1 area, from review of summary up at [facility], reread by radiology they are negative. She was cleared by cardiology at facility. She is reassured on findings. She will follow-up with her OB team. Prescription sent to her pharmacy. Re-evaluation: stable Disposition discussed with patient/family/significant other: Patient and significant other Case discussed with consulting clinician: N/A This note was generated with [employer] dictation software. It may contain incorrect words, spelling, and punctuation that were not noted in checking the note before signing. Lab Data Attestation: I reviewed the patient's lab results. Labs: Laboratory Results - last 24 hr 07/25/24 07/25/24 16:15 16:40 WBC 8.3 RBC 3.46 L Hgb 9.1 L Hct 27.5 L MCV 79.5 L MCH 26.3 L MCHC 33.1 RDW Std Deviation 40.7 RDW Coeff of Jen 14.3 Plt Count 337 MPV 9.0 Immature Gran % (Auto) 0.700 Neut % (Auto) 73.6 H Lymph % (Auto) 18.5 L [place] % (Auto) 6.3 Eos % (Auto) 0.7 Baso % (Auto) 0.2 Absolute Neuts (auto) 6.1 Absolute Lymphs (auto) 1.53 Nucleated RBC % 0 Sodium 135 Potassium 3.5 Chloride 105 Carbon Dioxide 18.9 L Anion Gap 11 BUN 8 Creatinine 0.48 L Estim Creat Clear Calc 157.40 Est GFR (MDRD) Non-Af 122 BUN/Creatinine Ratio 15.9 Glucose 110 H Calcium 9.2 Urine Color Yellow Urine Clarity Sl. Cloudy Urine pH 6.0 Ur Specific [place] 1.025 Urine Protein 30 H Urine Glucose (UA) Normal Urine Ketones Negative Urine Occult Blood Negative Urine Nitrite Positive H Urine Bilirubin Negative Urine Urobilinogen Normal Ur Leukocyte Esterase 25 H Urine RBC 0 SEEN Urine WBC 0-5 SEEN Ur Squamous Epith Cells 5-10 SEEN Urine Bacteria 1+ Urine Mucus 1+ Radiography Diagnostic Testing: Clinical Impression(s) from Imaging Studies Chest X-Ray 07/25/24 16:37 IMPRESSION: NO ACUTE FINDINGS. [facility] Triage Chief Complaint: Shortness of Breath ED Provider: Neville Gordon Dx/Rx/DC Orders Clinical Impression: UTI in , Anemia during , Shortness of breath during Instructions: : Weeks 26 to 30, Anemia During , ED Dyspnea Prescriptions: New cephalexin 500 mg capsule 500 mg PO Q12 Qty: 10 0RF No Action One-A-Day -1 27 mg iron- 800 mcg-235 mg capsule 1 cap PO DAILY Qty: 30 8RF Primary Care Provider: Care Physician,No Primary Referrals: Valerie Gresham DO [Med Staff - Active Staff] - 1 Week Care Physician,No Primary [Primary Care Provider] - Activity Restrictions/Additional Instructions: You had recent CT chest negative for blood clots. Hemoglobin stable at 9.1 today. Urine with infection. Chest x-ray negative. Take and finish antibiotic as prescribed. Follow-up with your doctors. Print Language: Wolof Disposition Disposition: Home, Self Care
[2024-07-25 16:31] LABS: Absolute Lymphocyte Count 1.53 X10^3/uL (0.83-4.51); Absolute Neutrophil Count 6.1 X10^3/uL (2.0-7.7); Basophil# 0.02 X10^3/uL; Basophil% 0.2 % (0-1); Eosinophil# 0.06 X10^3/uL; Eosinophils% 0.7 % (0-5); Hematocrit 27.5 % (37-47); Hemoglobin 9.1 g/dL (12.0-15.0); Lymphocyte # 1.53 X10^3/ul (0.83-4.51); Lymphocyte % 18.5 % (19-41); Mean Corp Hgb Conc 33.1 g/dL (32-36); Mean Corpuscular Hgb 26.3 pg (27.0-32.0); Mean Corpuscular Volume 79.5 fL (81-99); Monocyte# 0.52 X10^3/uL; Monocyte% 6.3 % (0-10); NRBC Flagged by Analyzer 0 % (0-5); Neutrophil # 6.06 X10^3/uL (2.7-7.7); Neutrophil % 73.6 % (47-70); Platelet Count 337 K/mm3 (150-450); RBC Distribution Width CV 14.3 % (11.6-14.6); RBC Distribution Width SD 40.7 fl (35.1-43.9); Red Blood Count 3.46 M/mm3 (4.2-5.4); White Blood Count 8.3 K/mm3 (4.4-11.0)
--- NOTE | 2024-07-25 16:37 | RAD_ITS ---
PROCEDURE: CHEST PA AND LATERAL 07/25/2024 REASON FOR EXAM: SOB TECHNIQUE: Frontal and lateral views of the chest. COMPARISON: None FINDINGS: Hardware: Chest wall loop recorder. Heart: The heart size is normal. Mediastinum: The mediastinal contour is unremarkable. Lungs: No focal consolidation. No pneumothorax. No pleural effusion. Bones: The bones are unremarkable. RAD/Chest PA and Lateral IMPRESSION: NO ACUTE FINDINGS. Reading Location: [facility]
[2024-07-25 16:52] LABS: Color, Urine Yellow (Yellow); Glucose, Dipstick Normal (Normal); Ketone-Dipstick Negative (Negative); Leukocyte Esterase-Dipstick 25 /ul (Negative); Nitrite-Dipstick Positive (Negative); Occult Blood-Urine Negative /ul (Negative); Protein-Dipstick 30 mg/dl (Negative); Red Blood Cells-Urine 0 SEEN /hpf (0-5); Specific Gravity, Urine 1.025 (1.002-1.030); Urine Bilirubin Dipstick Negative (Negative); Urine Clarity Sl. Cloudy (Clear); Urine Urobilinogen Normal (Normal)
[2024-07-25 16:59] VITALS: BP 100/83; PULSE 91; RESP 21; O2SAT 96
[2024-07-25 17:07] LABS: Anion Gap 11 (5-15); BUN 8 mg/dL (4-19); BUN/Creat Ratio 15.9 RATIO (10-20); Calcium,Total 9.2 mg/dL (7.6-11.0); Carbon Dioxide 18.9 mmol/L (21.0-32.0); Chloride 105 mmol/L (98-108); Creatinine, Serum 0.48 mg/dL (0.70-1.20); EST Glomerular Filtration Rate 122 (>60); Glucose 110 mg/dL (70-99); Potassium 3.5 mmol/L (3.3-5.1); Sodium Level 135 mmol/L (133-145)
[2024-07-25 17:13] VITALS: O2SAT 98
[2024-07-25 17:14] LABS: White Blood Cells 0-5 SEEN /hpf (0-5)
[2024-07-25 17:15] LABS: Bacteria 1+ /hpf (None Seen); Mucous, Urine 1+ /hpf (<or=2+); Squamous Epithelial Cells - UA 5-10 SEEN /hpf (5-10)
[2024-07-25] MEDS: Cephalexin 250 MG Capsule 500 MG PO (17:19)
[2024-07-25 17:38] VITALS: BP 106/69; PULSE 92; RESP 22; TEMP 36.3; O2SAT 98
== END 2024-07-25 17:49 | disposition home or self-care (01) ==
PROVIDERS: Emergency Provider Emergency Medicine; Visit Provider Emergency Medicine
DX: O23.43 Unspecified infection of urinary tract in pregnancy, third trimester (principal); E11.9 Type 2 diabetes mellitus without complications; O09.523 Supervision of elderly multigravida, third trimester; Z87.891 Personal history of nicotine dependence; Z3A.28 28 weeks gestation of pregnancy; R06.02 Shortness of breath; O99.891 Other specified diseases and conditions complicating pregnancy; O99.013 Anemia complicating pregnancy, third trimester; O99.283 Endocrine, nutritional and metabolic diseases complicating pregnancy, third trimester
CPT/HCPCS: 71046; 80048; 81001; 85025; 87077; 87086; 87088; 87186; 93005; 99284

== ENCOUNTER → 2024-08-12 | Outpatient (CLI) | payer MEDICAID, SELFPAY ==
[2024-08-12 14:18] LABS: Absolute Lymphocyte Count 1.43 X10^3/uL (0.83-4.51); Absolute Neutrophil Count 5.5 X10^3/uL (2.0-7.7); Basophil# 0.02 X10^3/uL; Basophil% 0.3 % (0-1); Eosinophil# 0.06 X10^3/uL; Eosinophils% 0.8 % (0-5); Hematocrit 27.6 % (37-47); Hemoglobin 8.8 g/dL (12.0-15.0); Lymphocyte # 1.43 X10^3/ul (0.83-4.51); Lymphocyte % 19.1 % (19-41); Mean Corp Hgb Conc 31.9 g/dL (32-36); Mean Corpuscular Hgb 25.1 pg (27.0-32.0); Mean Corpuscular Volume 78.6 fL (81-99); Mean Platelet Vol. 9.6 fl (6.2-12.0); Monocyte# 0.42 X10^3/uL; Monocyte% 5.6 % (0-10); NRBC Flagged by Analyzer 0 % (0-5); Neutrophil % 73.3 % (47-70); Platelet Count 294 K/mm3 (150-450); RBC Distribution Width CV 14.9 % (11.6-14.6); RBC Distribution Width SD 42.5 fl (35.1-43.9); Red Blood Count 3.51 M/mm3 (4.2-5.4); White Blood Count 7.5 K/mm3 (4.4-11.0)
[2024-08-12 15:14] LABS: Glucose Challenge Gest 1H 50g 194 mg/dL (70-140); HIV Nonreactive (Nonreactive); Syphilis Antibodies Nonreactive (Nonreactive)
== END | disposition home or self-care (01) ==
PROVIDERS: Registered Nurse; Referring Provider Nurse Practitioner Women's Health; Visit Provider Nurse Practitioner Women's Health
DX: O09.529 Supervision of elderly multigravida, unspecified trimester (principal); Z3A.00 Weeks of gestation of pregnancy not specified; Z13.1 Encounter for screening for diabetes mellitus
CPT/HCPCS: 36415; 82950; 85025; 86703; 86780; 86850; 86900; 86901

== ENCOUNTER → 2024-09-03 | Outpatient (CLI) | payer MEDICAID, SELFPAY ==
--- NOTE | 2024-09-03 15:23 | US_ITS ---
PROCEDURE: OB LIMITED WITH BIOMETRICS 09/03/2024 REASON FOR EXAM: 32 WEEK US FOR GDM TECHNIQUE: OB LIMITED WITH BIOMETRICS COMPARISON: None FINDINGS LMP: January 13, 2024. Number: 1 Position: Vertex Placental Position: Anterior and not low-lying Placental Abnormalities: No evidence of previa. DIMENSIONS: Biparietal Diameter: 8.7 cm: 35 weeks and 0 days: 86 percentile/ Head Circumference: 31.2 cm: 35 weeks and 0 days: 54 percentile/ Abdominal Circumference: 34 cm: 37 weeks and 6 days: 99 percentile/ Femur Length: 7.1 cm: 36 weeks and 1 day: 95 percentile/ ESTIMATED WEIGHT: 3009 9 g plus/-465 g ESTIMATED WEIGHT PERCENTILE (24+ weeks): 95th ESTIMATED GESTATIONAL AGE: Baseline: 33 weeks and 3 days By Ultrasound: 35 weeks and 4 days ESTIMATED DATE OF DELIVERY: Baseline: October 20, 2019 By Ultrasound: October 04, 2024 BIOPHYSICAL ASSESSMENT: Amniotic Fluid Volume: 7.2 cm Amniotic Fluid Index: 18.4 (8-24 cm normal range) Cardiac Motion: 155 beats per minute (average) Trunk and Limb Motion: Present. US/OB Limited With Biometrics IMPRESSION: Single live intrauterine gestation with a mean gestational age of 35 weeks and 4 days Reading Location: [facility]
== END | disposition home or self-care (01) ==
LOC: US 15:21
PROVIDERS: Referring Provider Advanced Practice Midwife; Visit Provider Advanced Practice Midwife
DX: O24.419 Gestational diabetes mellitus in pregnancy, unspecified control (principal); Z3A.32 32 weeks gestation of pregnancy
CPT/HCPCS: 76816

== ENCOUNTER → 2024-09-25 | Outpatient (CLI) | payer MEDICAID, SELFPAY ==
--- NOTE | 2024-09-25 | US_ITS ---
PROCEDURE: OB LIMITED (NO BIOMETRICS) 09/25/2024 REASON FOR EXAM: DAKOTAH CHECK TECHNIQUE: OB LIMITED (NO BIOMETRICS) COMPARISON: September 03, 2024 FINDINGS cardiac activity = 152. Cervical length is not visible. Max vertical pocket of fluid = 4.8 cm, DAKOTAH = 13.4 cm. Placenta is anterior not low lying US/OB Limited (No Biometrics) IMPRESSION: DAKOTAH = 13.4, normal range. Reading Location: [facility]
== END | disposition home or self-care (01) ==
PROVIDERS: Referring Provider Advanced Practice Midwife; Visit Provider Advanced Practice Midwife
DX: O09.523 Supervision of elderly multigravida, third trimester (principal); O24.419 Gestational diabetes mellitus in pregnancy, unspecified control; O36.63X0 Maternal care for excessive fetal growth, third trimester, not applicable or unspecified; Z3A.00 Weeks of gestation of pregnancy not specified
CPT/HCPCS: 76815; 87081

== ENCOUNTER 2024-10-02 12:38 | Inpatient (IN) | payer MEDICAID, SELFPAY ==
[2024-10-02] VITALS (36 sets, daily range): BP systolic 116–146; BP diastolic 55–92; PULSE 58–104; RESP 16–18; TEMP 36.8–37.2; O2SAT 93–100; BMI 32.1
[2024-10-02] MEDS: Lactated Ringers 1,000 ML 999 ML IV (12:35)
[2024-10-02 13:00] LABS: Hematocrit 28.0 % (37-47); Hemoglobin 8.8 g/dL (12.0-15.0); Immature Granulocytes Count 0.070 X10^3/uL (0.0-0.0); Mean Corp Hgb Conc 31.4 g/dL (32-36); Mean Corpuscular Volume 75.9 fL (81-99); Mean Platelet Vol. 10.1 fl (6.2-12.0); NRBC Flagged by Analyzer 0 % (0-5); Platelet Count 292 K/mm3 (150-450); RBC Distribution Width CV 15.8 % (11.6-14.6); RBC Distribution Width SD 42.9 fl (35.1-43.9); Red Blood Count 3.69 M/mm3 (4.2-5.4); White Blood Count 9.4 K/mm3 (4.4-11.0)
[2024-10-02] MEDS: Lactated Ringers 1,000 ML 50 ML IV (13:34)
[2024-10-02 13:36] LABS: AST(SGOT) 24 U/L (<=31)
--- NOTE | 2024-10-02 13:46 | HP.PCM.OB_ITS ---
HPI - General General Date of Admission: 10/02/24 Date of Service: 10/02/24 HPI Narrative ENRICO WAGNER, is a 44 F 37.4 weeks who presents to unit from office for advanced dilation and rule out labor. She was 5/70/-2 in the office today and progressed to 6/70/-2. Is comfortable with epidural and AROM performed for moderate mec. Does have a hx of poor compliance with GDM. blood sugars most recently have been controlled per pt Maternal Data Information ROSSY Calculator Estimated Delivery Date Method Current WG Current Estimate 10/19/24 LMP (Certain) 37w 4d Other Estimates 10/15/24 Ultrasound #1 38w 1d Final ROSSY: 10/19/24 [facility] Medical History Incomplete Bradycardia Implantable loop recorder present Wears glasses Anxiety Diabetes Anemia Back pain Migraine headache Injury of head and neck Syncope Blackout Heartburn Former smoker Leg cramps History of edema History of echocardiogram History of stress test Cardiology follow-up encounter Home Medications ?Medication ?Instructions ?Recorded ?Last Taken ?Type vit 168-iron 27 mg-folic 1 cap PO DAILY pregn alondra #30 caps 03/27/24 10/01/24 Rx acid 800 mcg-omega3 235 mg capsule (One-A-Day -1) blood sugar diagnostic (Blood #120 ea 08/14/24 Unknown Rx Glucose Test strips) blood-glucose meter #1 ea 08/14/24 Unknown Rx lancets #200 ea 08/14/24 Unknown Rx ferrous sulfate 325 mg (65 mg 325 mg PO QDAY an #30 ta bs 09/10/24 Unknown Rx iron) tablet (FeroSul) metformin 500 mg tablet 500 mg PO QHS diabetic #30 t abs 09/10/24 10/01/24 Rx Allergy/AdvReac Type Severity Reaction Status Date / Time No Known Allergies Allergy Verified 10/02/24 12:30 Surgical History H/O dilation and curettage No history of previous surgery Social History adopted: No household members: significant other and children number of children: 7 current occupational status: employed current occupation: [employer] pets and animals: Yes pets and animals: cat(s) sexually active: Yes Smoking Status: Former smoker substance use type: does not use seatbelt use: always do you feel safe at home: Yes 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 Date Name GA/Weeks Outcome Route Bth Weight Infant Gen Labor Lgth Anes thes ia Del Locatn Provider FOB Unknown Richard live - full term Unknown Boyd Unknown Ned Unknown Gomez Unknown Suly Unknown Dione Unknown Angie Visit Details Expected Delivery Route/Plan Labor Preferences- CB/BF classes: [] labor support person: [] labor intervention preferences: [] pain management options preferred: [] cut cord/dad catch: [] : [] PP control planned: [] discussed possible routes of delivery and associated risks: [] special requests: [] Plans Covid status: [] Flu vaccine: [] Tdap vaccine: [] Rhogam: [] LARC form signed: [] Problem list reviewed and updated with the most current plan of care details and appropriate orders placed. Relevant counseling for the gestational age provided. Continue routine care and follow up unless otherwise noted in visit notes/problem list details OB Flowsheet Initial Weight: 172 lb Date -?-?-?-?-?-?-?-?-?-?-?-?- EGA Weight BP Urine Prot -?-?-?-?-?-?-?-?-?-?-?-?- Glucose FHR FuHt Pres Dilation -?-?-?-?-?-?-?-?-?-?-?-?- Effaced St Visit Note 03/27/24 -?-?-?-?-?-?-?-?-?-?-?-?- 10w 4d 172 lb (+0 oz) 130/78 -?-?-?-?-?-?-?-?-?-?-?-?- 160 -?-?-?-?-?-?-?-?-?-?-?-?- LC- first trim u s con with LMP. no further bleeding. accepts nipt. hbga1c for obesity. 05/04/24 -?-?-?-?-?-?-?-?-?-?-?-?- 16w 0d Negative -?-?-?-?-?-?-?-?-?-?-?-?- Negative 150 -?-?-?-?-?-?-?-?-?-?-?-?- KW- no cramping or bleeding. has had multiple no shows and reschedules. importance of keeping appts discussed. [facility] US order sent. KW- no cramping or bleeding. has had multiple no shows and reschedules. importance of keeping appts discussed. [facility] US order sent. NIPT was done at first appt but did not result. AFP ordered. 06/08/24 -?-?-?-?-?-?-?-?-?-?-?-?- 21w 0d 174 lb 6 oz (+2 lb 6 oz) 127/79 Negative -?-?-?-?-?-?-?-?-?-?-?-?- Negative 145 -?-?-?-?-?-?-?-?-?-?-?-?- KW- no vb/crampi ng. good fm. anatomy US normal. 07/03/24 -?-?-?-?-?-?-?-?-?-?-?-?- 24w 4d 178 lb (+6 lb) 120/75 Negative -?-?-?-?-?-?-?-?-?-?-?-?- Negative 135 25 -?-?-?-?-?-?-?-?-?-?-?-?- LC- no vb/ctx/lo f. good fm. 28 week labs ordered. 07/28/24 -?-?-?-?-?-?-?-?-?-?-?-?- 28w 1d 180 lb 2 oz (+8 lb 2 oz) 114/71 Negative -?-?-?-?-?-?-?-?-?-?-?-?- Negative 130 29 -?-?-?-?-?-?-?-?-?-?-?-?- KW- no vb/lof/ct x. good fm. missed glucose draw and will need to redo. LARC today. Declines Tdap 08/12/24 -?-?-?-?-?-?-?-?-?-?-?-?- 30w 2d 182 lb 2 oz (+10 lb 2 oz) 119/77 Negative -?-?-?-?-?-?-?-?-?-?-?-?- Negative 150 34 -?-?-?-?-?-?-?-?-?-?-?-?- KW- no vb/lof/ct x. good fm. has not gotten repeat labs done. will try to get done today at [facility]. IF gct high or FH increased next visit will order growth US. 08/26/24 -?-?-?-?-?-?-?-?-?-?-?-?- 32w 2d 182 lb (+10 lb) 115/78 Negative -?-?-?-?-?-?-?-?-?-?-?-?- Negative 150 37 -?-?-?-?-?-?-?-?-?-?-?-?- KW-GDM per 2nd d raw. Very noncompliant with doing BS done. Stressed importance of monitoring BS and the implications high BS could have for delivery complications and - including NICU stay. Growth US ordered for 32 and 36 weeks. Follow up next week in [place] WITH blood sugar log and physician. Discussed importance of regulating blood sugars and will likely need medications. 09/10/24 -?-?-?-?-?-?-?-?-?-?-?-?- 34w 3d 177 lb 4 oz (+5 lb 4 oz) 126/76 Negative -?-?-?-?-?-?-?-?-?-?-?-?- Negative 140 38 -?-?-?-?-?-?-?-?-?-?-?-?- SM- no vb lof go od fm no regular ctx good fm she has not been compliant with checking BS FBS are 95-105 when they have been checked. she states her left her 4 days ago, she has been under increased stress. i discussed the improtance of starting metformin at night and chekcing bs throughout the day to know where we are and i recommended considering admission to the hospital, patient states she has no one to watch her kids. she has deliveyr planned with who will watch them but has nothing right now. 09/16/24 -?-?-?-?-?-?-?-?-?-?-?-?- 35w 2d 182 lb (+10 lb) 122/72 Negative -?-?-?-?-?-?-?-?-?-?-?-?- Negative 150 -?-?-?-?-?-?-?-?-?-?-?-?- -NST only reac tive. Last few FBS 70-80. is back in home. 09/25/24 -?-?-?-?-?-?-?-?-?-?-?-?- 36w 4d 183 lb 4 oz (+11 lb 4 oz) 129/78 -?-?-?-?-?-?-?-?-?-?-?-?- 140 39 Cephalic 3 -?-?-?-?-?-?-?-?-?-?-?-?- 60 -3 - patien t states fasting sugars aare 70-80 she doesn't have them with her, whenever she checks during the day which she says is inconsistent they are 100s no vb lof good fm no reuglar ctx 10/02/24 -?-?-?-?-?-?-?-?-?-?-?-?- 37w 4d 181 lb (+9 lb) 126/74 Trace -?-?-?-?-?-?-?-?-?-?-?-?- Negative 140 Cephalic 5 -?-?-?-?-?-?-?-?-?-?-?-?- 70 -2 KW- no vb/ lof. feeling some contractions. good fm. to for admission for labor. Discussed with SM and agrees. NST FHR Rate Baby A Baseline: 135 Variability:: Moderate Accelerations:: 15 x 15 Decelerations:: None NST Reactive:: Yes FHR Category:: Category I Uterine Activity:: 4-5 ROS Constitutional Constitutional: Denies change in weight, fatigue, fever(s), headache(s), poor appetite or weakness Eyes Eyes: Denies blurry vision, change in vision, floaters, seeing flashes or spots in vision ENT HEENT: Denies dizziness, headache(s), loss taste/smell or sore throat Cardiovascular Cardiovascular: Denies chest pain, dizziness, dyspnea, irregular heart rhythm, lightheadedness, palpitations or rapid heart rate Respiratory/Chest Respiratory/Chest: Denies change in mental status, chest tightness, cough, dyspnea or breast pain Gastrointestinal Gastrointestinal: Denies anorexia, chewing difficulty, constipation, diarrhea or weight changes Genitourinary Genitourinary: Denies difficulty urinating, dysuria, flank pain, genital pain, urinary frequency or urinary urgency Musculoskeletal Musculoskeletal: Denies back pain, difficulty walking, extremity pain, joint pain, muscle cramps or muscle weakness Integumentary Integumentary: Denies lesions or unusual bruising Neurologic Neurologic: Denies abnormal movements, abnormal speech, dizziness, numbness, seizure-like activity, syncope or weakness Psychiatric Psychiatric: Denies behavioral changes, change in appetite, confusion, depression, homicidal ideation, suicidal ideation or suicidal thoughts Endocrine Endocrinology: Denies excessive sweating, polydipsia or polyuria Hematologic/Lymphatic Hematologic/Lymphatic: Denies anemia Allergic/Immunologic Allergic/Immunologic: Denies itchy eyes, lip swelling, throat swelling, tongue swelling or wheezing Vital Signs Vital Signs Vital Signs: 10/02/24 12:49 10/02/24 12:49 10/02/24 13:05 Temperature 99.0 F Temperature Source Pulse Rate 100 Respiratory Rate Blood Pressure 142/74 H BP Systolic 142 BP Diastolic 74 Pulse Ox 10/02/24 13:06 10/02/24 13:06 10/02/24 13:23 Temperature Temperature Source Pulse Rate 101 H Respiratory Rate 18 Blood Pressure BP Systolic BP Diastolic Pulse Ox 97 10/02/24 13:23 10/02/24 13:27 10/02/24 13:27 Temperature Temperature Source Pulse Rate 104 H Respiratory Rate Blood Pressure 139/85 H BP Systolic 139 BP Diastolic 85 Pulse Ox 100 10/02/24 13:28 10/02/24 13:28 10/02/24 13:32 Temperature Temperature Source Pulse Rate 103 H Respiratory Rate Blood Pressure 146/86 H BP Systolic 146 BP Diastolic 86 Pulse Ox 100 10/02/24 13:32 10/02/24 13:33 10/02/24 13:33 Temperature Temperature Source Pulse Rate 100 95 Respiratory Rate Blood Pressure BP Systolic BP Diastolic Pulse Ox 100 10/02/24 13:37 10/02/24 13:37 10/02/24 13:37 Temperature Temperature Source Pulse Rate 96 Respiratory Rate Blood Pressure 136/88 H BP Systolic 136 BP Diastolic 88 Pulse Ox 93 10/02/24 13:37 10/02/24 13:37 10/02/24 13:37 Temperature 98.2 F Temperature Source Temporal Pulse Rate Respiratory Rate 18 Blood Pressure BP Systolic BP Diastolic Pulse Ox 10/02/24 13:38 10/02/24 13:38 10/02/24 13:42 Temperature Temperature Source Pulse Rate 96 Respiratory Rate Blood Pressure 126/68 H BP Systolic 126 BP Diastolic 68 Pulse Ox 100 10/02/24 13:42 10/02/24 13:43 10/02/24 13:43 Temperature Temperature Source Pulse Rate 90 94 Respiratory Rate Blood Pressure BP Systolic BP Diastolic Pulse Ox 100 10/02/24 13:45 Temperature 98.2 F Temperature Source Pulse Rate Respiratory Rate Blood Pressure BP Systolic BP Diastolic Pulse Ox Weight Weight: 181 lb Body Mass Index (BMI) 32.1 Physical Exam Const alert, oriented x3 and no apparent distress General Appearance: cooperative Orientation / Consciousness: awake HEENT normocephalic Neck full ROM Lymph Lymphatic: no lymphadenopathy noted Chest inspection of chest normal Resp normal respiratory effort and normal air movement Effort and Inspection: able to speak in complete sentences and symmetric chest movement GI soft to palpation and non-tender Inspection: gravid Palpation: soft; Negative for tender external exam normal Back/Spine normal to inspection Extremity normal to inspection and full ROM Skin no rashes or lesions noted Psych mental status grossly normal Appearance: grossly normal Speech: normal speech Labs Labs Labs: Blood Type A NEGATIVE Antibody Screen NEGATIVE Hct 28.0 % (37-47) L Hgb 8.8 g/dL (12.0-15.0) L Obstetrics Ultrasound Syphilis Total Ab Nonreactive (Nonreactive) Rubella IgG Antibody Reactive (Nonreactive) Hep Bs Antigen Non-Reactive (Nonreactive) Hepatitis C Antibody Non-Reactive (Nonreactive) Chlamydia DNA ([place]) Negative (Negative) N.gonorrhoeae DNA ([place]) Negative (Negative) HIV 1&2 Antibody Nonreactive (Nonreactive) Glucose 1 Hr 50 gm 194 mg/dL (70-140) H Assessment & Plan (1) Active labor: PLAN: Patient presents IAL, plan expectant management for , pitocin/AROM PRN if needed. Pain management: plans epidural. GBS neg. Management of any complications: see list I have reviewed the [facility] and made any clinically relevant updates. Dr Gresham aware of assessment and plan. agrees with above (2) LGA (large for gestational age) fetus affecting management of mother: QUALIFIERS: Fetus number: single or unspecified fetus Trimester: third trimester Qualified Code(s): O36.63X0 - Maternal care for excessive growth, third trimester, not applicable or unspecified COMMENT: 4500g at 39 weeks, non compliant with BS testing, start metformin, recommend 39 week csection. (3) Anemia affecting : QUALIFIERS: Trimester: third trimester Qualified Code(s): O99.013 - Anemia complicating , third trimester COMMENT: PO iron (4) Gestational diabetes mellitus (GDM) affecting , antepartum: COMMENT: noncompliant with BS. 32 and 36 week US ordered. recommend 39 week csection due to size. (5) AMA (advanced maternal age) multigravida 35+: QUALIFIERS: Trimester: third trimester Qualified Code(s): O09.523 - Supervision of elderly multigravida, third trimester COMMENT: deliver at 39 weeks and growth US and weekly nsts (6) UTI in : QUALIFIERS: Trimester: third trimester Qualified Code(s): O23.43 - Unspecified infection of urinary tract in , third trimester COMMENT: neg 05/04 (7) Rh negative state in antepartum period: COMMENT: fetus is RH neg. does not need rhogam (8) Supervision of elderly multigravida: QUALIFIERS: Trimester: third trimester Qualified Code(s): O09.523 - Supervision of elderly multigravida, third trimester COMMENT: PRR , boy PC: boyd Ramos thomas, brentyn, mathyue, brookalyn, papi. : dangelo (9) Implantable loop recorder present: COMMENT: 2020. (10) : QUALIFIERS: Weeks of gestation: 37 weeks Qualified Code(s): Z3A.37 - 37 weeks gestation of COMMENT: NIPT LR, nl anatomy (11) History of multiple miscarriages: (12) H/O dilation and curettage: COMMENT: incomplete Charges/Coding Multi Select Codes Urinary/Genital Urinary/Genital CPT Codes: No Charge
[2024-10-02] MEDS: fentaNYL-bupivacaine (epidural) 100 ML BAG EPIDURAL (13:53)
[2024-10-02 14:21] LABS: Alanine Aminotransfer ALT/SGPT 13 U/L (<=34); Estimated Creatinine Clearance 109.37 ml/min (50-250); Syphilis Antibodies Nonreactive (Nonreactive)
[2024-10-02 14:34] LABS: Uric Acid 5.0 mg/dL (2.6-6.0)
[2024-10-02 15:27] LABS: Creatinine, Urine (random) 201.00 mg/dL (28.00-217.00); Protein, Urine (Random) 27.9 mg/dL (0.0-12.0); Protein:Creat Ratio 139 mg/g CRE (0-200)
[2024-10-02] MEDS: 0.9% Saline Lock 10 ML Syringe IV (15:31)
[2024-10-02] MEDS: Oxytocin 15 Units/NS 250ml 15 UNITS/250 ML IV.SOLN 2 UNITS IV (15:32)
--- NOTE | 2024-10-02 17:03 | EX.PCM.OBVAG ---
Assessment & Plan (1) Vaginal delivery: (2) LGA (large for gestational age) fetus affecting management of mother: QUALIFIERS: Fetus number: single or unspecified fetus Trimester: third trimester Qualified Code(s): O36.63X0 - Maternal care for excessive growth, third trimester, not applicable or unspecified COMMENT: 4500g at 39 weeks, non compliant with BS testing, start metformin, recommend 39 week csection. (3) Anemia affecting : QUALIFIERS: Trimester: third trimester Qualified Code(s): O99.013 - Anemia complicating , third trimester COMMENT: PO iron (4) Gestational diabetes mellitus (GDM) affecting , antepartum: COMMENT: noncompliant with BS. 32 and 36 week US ordered. recommend 39 week csection due to size. (5) AMA (advanced maternal age) multigravida 35+: QUALIFIERS: Trimester: third trimester Qualified Code(s): O09.523 - Supervision of elderly multigravida, third trimester COMMENT: deliver at 39 weeks and growth US and weekly nsts (6) UTI in : QUALIFIERS: Trimester: third trimester Qualified Code(s): O23.43 - Unspecified infection of urinary tract in , third trimester COMMENT: neg 05/04 (7) Rh negative state in antepartum period: COMMENT: fetus is RH neg. does not need rhogam (8) Supervision of elderly multigravida: QUALIFIERS: Trimester: third trimester Qualified Code(s): O09.523 - Supervision of elderly multigravida, third trimester COMMENT: PRR , boy PC: boyd Ramos thomas, brentyn, mathyue, brookalyn, grantion. : dangelo (9) Implantable loop recorder present: COMMENT: 2020. (10) : QUALIFIERS: Weeks of gestation: 37 weeks Qualified Code(s): Z3A.37 - 37 weeks gestation of COMMENT: NIPT LR, nl anatomy (11) History of multiple miscarriages: (12) H/O dilation and curettage: COMMENT: incomplete Maternal Data Information ROSSY Calculator Estimated Delivery Date Method Current WG Current Estimate 10/19/24 LMP (Certain) 37w 4d Other Estimates 10/15/24 Ultrasound #1 38w 1d Final ROSSY: 10/19/24 Final ROSSY Source: US >20 weeks Gestational age: 37.4 Vaginal Delivery Maternal Presentation Maternal Presentation: Active Labor Maternal Presentation: Presented to unit for active labor. augmentation after placement of epidural Vaginal Delivery Information Procedure Performed: Spontaneous Vaginal Delivery Surgeon/Practitioner: Fern Jameson Date of Procedure: 10/02/24 Pre-Procedure Diagnosis: see problem list Post-Procedure Diagnosis: same Type of anesthesia: Epidural Estimated Blood Loss: 150 Time of Delivery: 16:51 Findings Description of procedure: Dr Hobson on unit for delivery due to high risk of shoulder dystocia and PPH. Progressed well to 10cm dilated and made steady progress with effective maternal pushing. Delivered the head in OMAR presentation. The head was delivered atraumatically and no nuchal cord was identified. The anterior and posterior shoulders delivered without complication followed by the rest of the and the was placed on the maternal abdomen. Delayed cord clamping was employed for approximately 3 minutes. Cord was clamped and cut and gentle traction was applied to the cord and the placenta delivered spontaneously. Immediately following, it was noted to be intact with a 3 vessel cord. Uterine bleeding stable. The perineum and vagina were inspected and noted to have no laceration. EBL was 150cc. Patient and tolerated delivery well. Apgars 8/9. [Benji] notified of vaginal delivery and orders reviewed. Physician agrees with current plan of care. Presentation: Vertex Amniotic Membrane Rupture Type: Artificial Amniotic Fluid Description: Moderate meconium Placental Delivery Description: Spontaneous Placenta Disposition: [facility] Specimen collected: No Cord Vessel Description: 3 Vessels Cord Entanglement: None Infant A Gender: Male (1 minute): 8 (5 minute): 9 Delayed Cord Clamping: Yes Sales Project Engineer nursing staffing coordinator: No Post Vaginal Deli Medications given after delivery: IV Pitocin Episiotomy Description: None Laceration: None Complication Complications: No Multi Select Codes Urinary/Genital Urinary/Genital CPT Codes: 26305 Vaginal Delivery+ Care([facility])
[2024-10-02] MEDS: Oxytocin 15 Units/NS 250ml 15 UNITS/250 ML IV.SOLN 83 UNITS IV (17:30)
[2024-10-03 00:20] VITALS: BP 113/72; PULSE 76; RESP 18; TEMP 36.6; O2SAT 99
[2024-10-03 04:59] VITALS: BP 116/81; PULSE 96; RESP 14; TEMP 36.6; O2SAT 98
[2024-10-03 06:47] LABS: Hematocrit 25.3 % (37-47); Hemoglobin 8.2 g/dL (12.0-15.0); Immature Granulocytes Count 0.040 X10^3/uL (0.0-0.0); Mean Corp Hgb Conc 32.4 g/dL (32-36); Mean Corpuscular Volume 77.1 fL (81-99); Mean Platelet Vol. 10.3 fl (6.2-12.0); NRBC Flagged by Analyzer 0 % (0-5); Platelet Count 230 K/mm3 (150-450); RBC Distribution Width CV 15.7 % (11.6-14.6); RBC Distribution Width SD 43.1 fl (35.1-43.9); Red Blood Count 3.28 M/mm3 (4.2-5.4); White Blood Count 9.8 K/mm3 (4.4-11.0)
[2024-10-03 09:00] VITALS: BP 128/86; PULSE 68; RESP 16; TEMP 36.4; O2SAT 98
--- NOTE | 2024-10-03 09:17 | PCM.PN.OB ---
Subjective Subjective Patient doing well without complaints. Tolerating PO. Ambulating and voiding without difficulty. Feeding well. Denies chest pain, shortness of breath, calf pain/swelling, fevers, chills, lightheadedness. Objective Data Objective Data Vital Signs: Vital Signs Temp Pulse Resp BP Pulse Ox O2 Del Method 97.5 F L 68 16 128/86 H 98 Room Air 10/03/24 09:00 10/03/24 09:00 10/03/24 09:00 10/03/24 09:00 10/03/24 09:00 10/03/24 09:00 Oxygen Delivery Method Room Air Weight: 181 lb Body Mass Index (BMI) 32.1 Intake & Output: Intake and Output for Last 24 Hours 10/01/24 10/02/24 10/03/24 23:59 23:59 23:59 Intake Total 2071.84 / 2071.84 Output Total 850 / 850 600 / 600 Balance 1221.84 / 1221.84 -600 / -600 Lab / Micro Data Attestation: I reviewed the patient's lab results. 10/03/24 06:13 10/02/24 12:30 Labs: Laboratory Results - last 24 hr 10/02/24 12:30: WBC 9.4, RBC 3.69 L, Hgb 8.8 L, Hct 28.0 L, MCV 75.9 L, MCH 23.8 L, MCHC 31.4 L, RDW Std Deviation 42.9, RDW Coeff of Jen 15.8 H, Plt Count 292, MPV 10.1, Immature Gran % (Auto) 0.700, Neut % (Auto) 73.1 H, Lymph % (Auto) 19.6, [place] % (Auto) 5.9, Eos % (Auto) 0.5, Baso % (Auto) 0.2, Absolute Neuts (auto) 6.8, Absolute Lymphs (auto) 1.83, Nucleated RBC % 0, Creatinine 0.68 L, Estim Creat Clear Calc 109.37, Est GFR (MDRD) Non-Af 111, Uric Acid 5.0, AST 24, ALT 13, Syphilis Total Ab Nonreactive, Blood Type A NEGATIVE, Antibody Screen NEGATIVE 10/02/24 13:04: POC Glucose 105 10/02/24 14:14: POC Glucose 101 10/02/24 14:45: U Random Total Protein 27.9 H, Urine Creatinine 201.00, Protein/Creatinin Ratio 139 10/02/24 15:34: POC Glucose 79 10/02/24 16:19: POC Glucose 75 10/02/24 17:39: POC Glucose 74 10/03/24 06:13: WBC 9.8, RBC 3.28 L, Hgb 8.2 L, Hct 25.3 L, MCV 77.1 L, MCH 25.0 L, MCHC 32.4, RDW Std Deviation 43.1, RDW Coeff of Jen 15.7 H, Plt Count 230, MPV 10.3, Immature Gran % (Auto) 0.400, Neut % (Auto) 69.1, Lymph % (Auto) 21.8, [place] % (Auto) 7.6, Eos % (Auto) 0.8, Baso % (Auto) 0.3, Absolute Neuts (auto) 6.8, Absolute Lymphs (auto) 2.14, Nucleated RBC % 0 10/03/24 06:14: POC Glucose 83 ROS Constitutional Constitutional: Reports systems reviewed and no addt'l complaints, except as documented; Denies anorexia or headache(s) Cardiovascular Cardiovascular: Reports systems reviewed and no addt'l complaints, except as documented; Denies dizziness, dyspnea, nausea or tachypnea Respiratory/Chest Respiratory/Chest: Reports systems reviewed and no addt'l complaints, except as documented; Denies cough, dyspnea, shortness of breath at rest or tachypnea Gastrointestinal Gastrointestinal: Reports systems reviewed and no addt'l complaints, except as documented; Denies abdominal pain, constipation or nausea Genitourinary Genitourinary: Reports systems reviewed and no addt'l complaints, except as documented; Denies burning urination, difficulty urinating, dysuria, urinary frequency or urinary incontinence Musculoskeletal Musculoskeletal: Reports systems reviewed and no addt'l complaints, except as documented Integumentary Integumentary: Reports systems reviewed and no addt'l complaints, except as documented Neurologic Neurologic: Reports systems reviewed and no addt'l complaints, except as documented; Denies abnormal speech, dizziness or headache(s) Psychiatric Psychiatric: Reports systems reviewed and no addt'l complaints, except as documented Endocrine Endocrinology: Reports systems reviewed and no addt'l complaints, except as documented Hematologic/Lymphatic Hematologic/Lymphatic: Reports systems reviewed and no addt'l complaints, except as documented Physical Exam Const alert, oriented x3 and no apparent distress Neck full ROM Resp normal respiratory effort, normal air movement and no retractions Effort and Inspection: able to speak in complete sentences and symmetric chest movement GI soft to palpation Bladder / Kidney Exam: bladder normal to palpation Uterus Palpation: uterus fundus firm Extremity normal to inspection and full ROM Psych mental status grossly normal, thought process normal and cooperative Assessment & Plan (1) Vaginal delivery: PLAN: s/p PPD # 1 1. routine post delivery care 2. breast feeding- support given 3. rh positive 4. rubella immune 5. Discharge home if desired (2) Active labor: (3) LGA (large for gestational age) fetus affecting management of mother: QUALIFIERS: Fetus number: single or unspecified fetus Trimester: third trimester Qualified Code(s): O36.63X0 - Maternal care for excessive growth, third trimester, not applicable or unspecified COMMENT: 4500g at 39 weeks, non compliant with BS testing, start metformin, recommend 39 week csection. (4) Anemia affecting : QUALIFIERS: Trimester: third trimester Qualified Code(s): O99.013 - Anemia complicating , third trimester COMMENT: IV iron after delivery (5) Gestational diabetes mellitus (GDM) affecting , antepartum: COMMENT: noncompliant with BS. 32 and 36 week US ordered. recommend 39 week csection due to size. (6) AMA (advanced maternal age) multigravida 35+: QUALIFIERS: Trimester: third trimester Qualified Code(s): O09.523 - Supervision of elderly multigravida, third trimester COMMENT: deliver at 39 weeks and growth US and weekly nsts (7) UTI in : QUALIFIERS: Trimester: third trimester Qualified Code(s): O23.43 - Unspecified infection of urinary tract in , third trimester COMMENT: neg 05/04 (8) Rh negative state in antepartum period: COMMENT: fetus is RH neg. does not need rhogam (9) Supervision of elderly multigravida: QUALIFIERS: Trimester: third trimester Qualified Code(s): O09.523 - Supervision of elderly multigravida, third trimester COMMENT: PRR , boy PC: boyd Ramos thomas, brentyn, mathyue, brookalyn, grantion. : dangelo (10) Implantable loop recorder present: COMMENT: 2020. (11) : QUALIFIERS: Weeks of gestation: 37 weeks Qualified Code(s): Z3A.37 - 37 weeks gestation of COMMENT: NIPT LR, nl anatomy Charges/Coding Multi Select Codes Urinary/Genital Urinary/Genital CPT Codes: No Charge
[2024-10-03] MEDS: 0.9% Saline Lock 10 ML Syringe IV (10:20)
[2024-10-03] MEDS: Iron Sucrose Complex 200 MG in 0.9% Normal Saline (100mL Bag) 100 ML 220 MG IV (10:20)
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
--- NOTE | 2024-10-03 13:20 | CASEMGMT ---
Instant Powder Supervisor spoke with the nurse of MOB following the assessment to see if nurse had any concerns which she stated she did. The nurse stated she has been concerned about the MOB's flat affect but was told that's just how it is. Nurse shared concerns that the MOB doesn't appear to be super bonded with the and has only seen the MOB hold once and that's when she picked up and handed the to the MOB. Nurse stated the MOB has been repeatedly over-feeding the and has been educated and re-educated about feeding/amount/schedules that repeatedly are not being adhered to so she had to remove the extra formula from the crib. Nurse stated that she believes the FOB came in high at one point because of how he was acting along with him having squinting eyes. FOB was described [facility] and coming back in often. Valerie Romero, TRANSMITTER TESTER, CSW
[2024-10-03 13:23] VITALS: BP 121/77; PULSE 90; RESP 16; TEMP 36.6; O2SAT 97
[2024-10-03] MEDS: SELF ADMINISTRATION OF MEDS 1 EACH NOTE (13:37)
[2024-10-03 17:15] VITALS: BP 127/70; PULSE 86; RESP 16; TEMP 36.7; O2SAT 96
[2024-10-03 19:49] VITALS: BP 124/83; PULSE 80; RESP 16; TEMP 36.6; O2SAT 98
--- NOTE | 2024-10-03 21:05 | CASEMGMT ---
Social Work: Shear Operator Helper made phone contact with [facility] and spoke with Brandy and made a referral (see note for details). Brandy stated they already have an open case with this mother and her family and the assigned worker is Gina Alvarez. Brandy stated mother of baby and baby are ok to be discharged with no restrictions when medically ready and if anything changes, they can follow up with this family tomorrow once they are home and/or on Saturday morning. Valerie Romero, BIOLOGIST AIDE, SUPERVISOR COMPUTER OPERATIONS
[2024-10-04 02:29] VITALS: BP 116/71; PULSE 76; RESP 16; TEMP 36.4; O2SAT 97
--- NOTE | 2024-10-04 08:06 | PN.OBGYN_ITS ---
Subjective Subjective Patient doing well without complaints. Tolerating PO. Ambulating and voiding without difficulty. Feeding well. Denies chest pain, shortness of breath, calf pain/swelling, fevers, chills, lightheadedness. Objective Data Objective Data Vital Signs: Vital Signs Temp Pulse Resp BP Pulse Ox O2 Del Method 97.5 F L 76 16 116/71 97 Room Air 10/04/24 02:29 10/04/24 02:29 10/04/24 02:29 10/04/24 02:29 10/04/24 02:29 10/04/24 02:29 Oxygen Delivery Method Room Air Weight: 181 lb Body Mass Index (BMI) 32.1 Intake & Output: Intake and Output for Last 24 Hours 10/02/24 10/03/24 10/04/24 23:59 23:59 23:59 Intake Total 2071.84 / 2071.84 110 / 110 Output Total 850 / 850 600 / 600 Balance 1221.84 / 1221.84 -490 / -490 Lab / Micro Data Attestation: I reviewed the patient's lab results. 10/03/24 06:13 10/02/24 12:30 ROS Constitutional Constitutional: Reports systems reviewed and no addt'l complaints, except as documented; Denies anorexia or headache(s) Cardiovascular Cardiovascular: Reports systems reviewed and no addt'l complaints, except as documented; Denies dizziness, dyspnea, nausea or tachypnea Respiratory/Chest Respiratory/Chest: Reports systems reviewed and no addt'l complaints, except as documented; Denies cough, dyspnea, shortness of breath at rest or tachypnea Gastrointestinal Gastrointestinal: Reports systems reviewed and no addt'l complaints, except as documented; Denies abdominal pain, constipation or nausea Genitourinary Genitourinary: Reports systems reviewed and no addt'l complaints, except as documented; Denies burning urination, difficulty urinating, dysuria, urinary frequency or urinary incontinence Musculoskeletal Musculoskeletal: Reports systems reviewed and no addt'l complaints, except as documented Integumentary Integumentary: Reports systems reviewed and no addt'l complaints, except as documented Neurologic Neurologic: Reports systems reviewed and no addt'l complaints, except as documented; Denies abnormal speech, dizziness or headache(s) Psychiatric Psychiatric: Reports systems reviewed and no addt'l complaints, except as documented Endocrine Endocrinology: Reports systems reviewed and no addt'l complaints, except as documented Hematologic/Lymphatic Hematologic/Lymphatic: Reports systems reviewed and no addt'l complaints, except as documented Physical Exam Const alert, oriented x3 and no apparent distress Neck full ROM Resp normal respiratory effort, normal air movement and no retractions Effort and Inspection: able to speak in complete sentences and symmetric chest movement GI soft to palpation Bladder / Kidney Exam: bladder normal to palpation Uterus Palpation: uterus fundus firm Extremity normal to inspection and full ROM Psych mental status grossly normal, thought process normal and cooperative Assessment & Plan (1) Vaginal delivery: PLAN: s/p PPD # 2 1. routine post delivery care 2. breast feeding- support given 3. rh positive 4. rubella immune 5. Discharge home (2) Active labor: (3) LGA (large for gestational age) fetus affecting management of mother: QUALIFIERS: Fetus number: single or unspecified fetus Trimester: third trimester Qualified Code(s): O36.63X0 - Maternal care for excessive growth, third trimester, not applicable or unspecified COMMENT: 4500g at 39 weeks, non compliant with BS testing, start metformin, recommend 39 week csection. (4) Anemia affecting : QUALIFIERS: Trimester: third trimester Qualified Code(s): O99.013 - Anemia complicating , third trimester COMMENT: IV iron after delivery (5) Gestational diabetes mellitus (GDM) affecting , antepartum: COMMENT: noncompliant with BS. 32 and 36 week US ordered. recommend 39 week csection due to size. (6) AMA (advanced maternal age) multigravida 35+: QUALIFIERS: Trimester: third trimester Qualified Code(s): O09.523 - Supervision of elderly multigravida, third trimester COMMENT: deliver at 39 weeks and growth US and weekly nsts (7) UTI in : QUALIFIERS: Trimester: third trimester Qualified Code(s): O23.43 - Unspecified infection of urinary tract in , third trimester COMMENT: neg 05/04 (8) Rh negative state in antepartum period: COMMENT: fetus is RH neg. does not need rhogam (9) Supervision of elderly multigravida: QUALIFIERS: Trimester: third trimester Qualified Code(s): O09.523 - Supervision of elderly multigravida, third trimester COMMENT: PRR , boy PC: boyd Ramos thomas, brentyn, mathyue, brookalyn, grantion. : dangelo (10) Implantable loop recorder present: COMMENT: 2020. (11) : QUALIFIERS: Weeks of gestation: 37 weeks Qualified Code(s): Z 3A.37 - 37 weeks gestation of COMMENT: NIPT LR, nl anatomy (12) History of multiple miscarriages: (13) H/O dilation and curettage: COMMENT: incomplete Charges/Coding Multi Select Codes Urinary/Genital Urinary/Genital CPT Codes: No Charge
--- NOTE | 2024-10-04 08:07 | DCINST_ITS ---
Discharge Instructions DC O2, CPAP, BIPAP needs Home O2 Discharge instructions: No Dressing / Incision Discharge Activity: Return to Normal Activity May resume sexual activity in: 6-8 weeks Dressing / Incision Call your doctor if you observe: Fever of 101 or Higher, Coldness, Increased Pain, Numbness or Tingling, Change in Color, Inability to urinate, Inability to have a bowel movement, Using more than 1 pad per hour, Shortness of breath, Dizziness, Fainting spells, Swelling in the ankles, Chest pain, Increased palpitations (irregular heartbeat), Calf discomfort and Uncontrolled pain Follow Up Care Please Follow Up With: Fern Jameson CNM When: Please call the office to schedule your follow up appointment in 6 weeks. If you had high blood pressure please call to schedule an appointment in 2 weeks. Test Results: Test results from this visit will be discussed in further detail at your follow- up appointment, if applicable. Discharge Plan Admission Admit Date/Time: 10/02/24 12:38 Attending Provider: Fern Jamseon Primary Care Provider: Care PhysicianBrittni Primary Discharge Orders/Prescriptions Prescriptions: No Action One-A-Day -1 27 mg iron- 800 mcg-235 mg capsule 1 cap PO DAILY Qty: 30 8RF metformin 500 mg tablet 500 mg PO QHS Qty: 30 12RF ferrous sulfate [FeroSul] 325 mg (65 mg iron) tablet 325 mg PO QDAY Qty: 30 3RF (DME) Blood Glucose Test Strip See Rx Instructions .MEDSUPPLY Qty: 120 5RF Rx Instructions: As directed-fasting & 2 hr post meals (DME) blood-glucose meter Misc See Rx Instructions .MEDSUPPLY Qty: 1 0RF Rx Instructions: As directed- Test fasting and 2 hours after meals (DME) lancets Misc See Rx Instructions .MEDSUPPLY Qty: 200 5RF Rx Instructions: As directed-fasting & 2 hr post meals Referrals / Follow Up: Care Physician,Brittni Primary [Primary Care Provider] -
[2024-10-04 08:15] VITALS: BP 119/72; PULSE 81; RESP 16; TEMP 36.6
--- NOTE | 2024-10-04 11:30 | CASEMGMT ---
Social Work Web Application Tester followed up with the nurse to check and see how everything went through the night as well as how everything has been going this morning. Nurse shared that she is concerned about . Nurse stated that the MOB and FOB have both been educated numerous times about not feeding while he's laying on his back in the crib however the MOB continues to do so. Nurse stated she walked in and observed this happening again on this date and was observed to have formula running all out of his mouth. The nurse stated she had to intervene at that point. Nurse stated was fed at 8am and was ready to be discharged however the MOB called the nurse's station instead and asked if they could come get the baby so she and the FOB could sleep as the baby was said to have been up all night. Nurse also stated when she was in the room, the MOB and FOB said the was being fussy however was observed by the nurse to be fast asleep. Nurse shared that the MOB was observed to have a brace on each arm and the nurse want's sure if the MOB was able to milk pickup driver which nurse later asked the MOB about who replied she is able to but is too weak and stated she has carpal tunnel on both sides. Nurse did say that the MOB appears to be changing 's diapers. Nurse stated that during the 24 hour assessment, the FOB was observed to stand over 's crib and was bouncing up and down nervously the entire time and his behavior was described as being bizarre. The nurse at that time encouraged the FOB to get baby dressed at which time the FOB stated he couldn't do but then did although it took what was described as a long time. (end time: 10:30) Social Worked called Fern Jameson who was said to have had concerns during rounding earlier on this date. Fern reported that the MOB has always been flat. She stated anytime she has asked the MOB questions, she never gets a yes or no answer. She stated that most of the time the MOB avoids eye contact. Fern stated she is the one who saw the MOB during most of her visits because the MOB would routinely be more than 30-40 minutes late for her appointments with the physicians and would land on her schedule to be seen. Fern stated that prenatally, the MOB was so non-compliant with her blood sugars, not checking her blood sugars, being so late or entirely missing her appointments that after delivery they are likely going to discharge the MOB from their services because of the overall chaos. Fern stated that the MOB has never brought in more than 2 of her children to her appointments and when she did, it was described as chaotic Fern stated the MOB has appeared to be disconnected from the beginning, feels that the MOB is extremely overwhelmed, is worried that the other kids in the home are possibly being neglected, has never seen the MOB hold the baby and would be very concerned about the baby going home at this point as she is worried about the baby aspirating. (end time: 10:42) Web Application Tester called [facility] again and spoke with Brandy and shared both new and on-going concerns. Brandy to call her surface supervisor for direction. (10:51) Brandy called social media specialist back and again, stated baby is to be discharged home to the MOB and she will go out to the home today to assess and to also inquire about supports. (11:04) pack mule worker updated nursing. MOB and baby to be discharged home when ready. (11:30) No additional concerns/follow up needed. Valerie Romero, ENTRY LEVEL MANAGEMENT, RETENTION MANAGER
--- NOTE | 2024-10-04 11:52 | NURSING ---
ZULEMA Padilla informed of nurses' concerns over parents' baby care and feeding. Baby has been in the crib this morning, I have not seen mom or dad holding or caring for baby in any way. Mom noted to be feeding baby with him lying in the crib in spite of being reminded by several nurses to pick baby up to feed him.
--- NOTE | 2024-10-06 11:26 | CM.ED ---
Social work Per handoff from [facility], SW called Gina Nayak from [facility] (ph: [phone]) to follow up on patient's WP case from over the weekend. SW asked Gina if there were any further questions that this SW could attempt to answer. Gina stated getting into contact with WP SW [facility] [employer] yesterday who provided further information and answered further questions that Gina had. SW stated Gina could call [facility] back if further questions were needing answered; Gina expressed understanding. No further needs identified at this time. Amna Lowery, STRATEGIC PLANNING DIRECTOR, LARD MIXER
--- NOTE | 2024-10-18 13:50 | CASEMGMT ---
Social Work General Accounting Clerk received written correspondence from [facility] Department of [facility] dated 10/07/24 indicating that the referral was accepted and has been assigned to Leonie Phipps. Valerie Romero, DOUBLE NEEDLE STITCHER, PUSH CONNECTOR ASSEMBLER
== END 2024-10-04 14:00 | disposition home or self-care (01) | DRG 560 ==
PROVIDERS: Admitting Provider Advanced Practice Midwife; Referring Provider Advanced Practice Midwife; Visit Provider Advanced Practice Midwife
DX: O36.63X0 Maternal care for excessive fetal growth, third trimester, not applicable or unspecified (principal); Z37.0 Single live birth; O24.415 Gestational diabetes mellitus in pregnancy, controlled by oral hypoglycemic drugs; O77.0 Labor and delivery complicated by meconium in amniotic fluid; O99.02 Anemia complicating childbirth; O26.23 Pregnancy care for patient with recurrent pregnancy loss, third trimester; O26.893 Other specified pregnancy related conditions, third trimester; Z67.11 Type A blood, Rh negative; Z95.818 Presence of other cardiac implants and grafts; Z91.198 Patient's noncompliance with other medical treatment and regimen for other reason; Z3A.37 37 weeks gestation of pregnancy; Z87.891 Personal history of nicotine dependence
CPT/HCPCS: 59025; 59050; 82565; 82570; 82962; 84156; 84450; 84460; 84550; 85025; 86780; 86850; 86900; 86901; 99221; J1756; A4216; G0378

== ENCOUNTER → 2024-11-25 | Outpatient (CLI) | payer MEDICAID, SELFPAY ==
[2024-11-25 16:41] LABS: Hematocrit 36.9 % (37-47); Hemoglobin 11.8 g/dL (12.0-15.0); Immature Granulocytes Count 0.020 X10^3/uL (0.0-0.0); Mean Corp Hgb Conc 32.0 g/dL (32-36); Mean Corpuscular Volume 77.8 fL (81-99); Mean Platelet Vol. 9.1 fl (6.2-12.0); NRBC Flagged by Analyzer 0 % (0-5); Platelet Count 377 K/mm3 (150-450); RBC Distribution Width CV 16.2 % (11.6-14.6); RBC Distribution Width SD 46.3 fl (35.1-43.9); Red Blood Count 4.74 M/mm3 (4.2-5.4); White Blood Count 5.9 K/mm3 (4.4-11.0)
== END | disposition home or self-care (01) ==
LOC: BWCLAB 14:37
PROVIDERS: Referring Provider Nurse Practitioner Women's Health; Visit Provider Nurse Practitioner Women's Health
DX: D64.9 Anemia, unspecified (principal)
CPT/HCPCS: 36415; 85025